=== PATIENT | male | born 1970 | race Caucasian/White ===

== ENCOUNTER → 2018-04-26 08:59 | Outpatient (POV) | payer BC, SELFPAY ==
[2018-04-26 09:27] VITALS: BMI 33.4
[2018-04-26 09:32] VITALS: BP 167/94; PULSE 61; RESP 18; TEMP 36.6; O2SAT 99
--- NOTE | 2018-04-26 12:16 | HMH.PMCON ---
Assessment and Plan (1) Degenerative disc disease Current visit: Yes Status: Chronic Qualifiers: Spinal region: lumbar Qualified Code(s): M51.36 - Other intervertebral disc degeneration, lumbar region Category: Medical (2) Radiculopathy Current visit: Yes Status: Chronic Qualifiers: Spinal region: lumbar Qualified Code(s): M54.16 - Radiculopathy, lumbar region Category: Medical Code(s): M54.10 - Radiculopathy, site unspecified - Assessment and plan all Dx Assessment and Plan for all problems:: We will schedule a series of 3 epidural steroid injections at the L4-L5 level for the patient. Patient has had this in the past and had 2-3 years relief with this. Patient is continuing a home stretching program. Patient is not on any anticoagulation therapy. I will follow-up with the patient after his 3 injections. Patient has tried and failed several months of anti-inflammatories. This note was dictated using voice recognition software and may contain errors or omissions HPI - Data of Consult Consult date: 04/26/18 Requesting Physician: Mylene Perez APRN Primary Care Provider: Noam Lackey MD Family Provider: Jose Quispe MD - Consult Narrative Reason for consult: Back pain History of present illness: Mr. Yanez is a 47 year old male who presents today for consultation in regards to his low back pain. Patient was having pain after he stepped out of his vehicle and twinge something in his back. Patient has had this pain in the past when he received 3 epidurals it was relieved. Patient states that it lasted for several years. Patient rates his pain an 8 out of 10 today. Patient states that he is having some muscle spasms as well. Patient is currently on Flexeril and this is helping. Patient is interested in epidural steroid injections. Patient is continuing a home stretching program at home. He states the pain is midline and radiating into his legs bilaterally. Patient states that it is aching and constant in nature CC: Mylene Perez APRN [facility] History I have reviewed the patient's past medical history: Yes Medical History: Reports:: Hypertension Denies:: Cancer, Diabetes Mellitus Type 1, Diabetes Mellitus Type 2, MRSA Other Surgeries: Yes: Other Amputation: No Fractures: No - *Social History Educational Level: Completed College Smoking Status: Never smoker Alcohol Intake: current Alcohol Intake Frequency:: a few times a week Occupational Status: employed Housing: house Household Members: spouse - Psychiatric History Expresses thoughts of harming self/others: None Suicide Plan Description: No Plan Review of Systems - Review of Systems ROS General: no recent weight change, no fever, no sleep disturbances Respiratory: no cough, no shortness of air, no recurring pulmonary infections Cardiovascular/Peripheral Vascular: No chest pain, No palpitations, no edema, no shortness of breath. Gastrointestinal: no incontinence, normal bowel movements reported Genitourinary: no incontinence Musculoskeletal: Back pain, leg pain Psychiatric: normal mood/ affect, Neurological: [denies weakness in extremities], [denies balance issues] Meds Home Medications Medication Instructions Recorded Confirmed Type Cyclobenzaprine HCl 10 mg PO TID 04/26/18 04/26/18 History [Cyclobenzaprine 10mg Tab] Indomethacin 25 mg PO TID 04/26/18 04/26/18 History Metoprolol Tartrate 100 mg PO DAILY 04/26/18 04/26/18 History Omeprazole [Omeprazole 20mg Tab] 20 mg PO DAILY 04/26/18 04/26/18 History Allergies Allergy/AdvReac Type Severity Reaction Status Date / Time NO KNOWN ALLERGIES - NKA Allergy Mild Uncoded 07/27/17 15:01 INGREDIENT: NO KNOWN - NO Allergy Unknown Uncoded 07/27/17 15:01 KNOWN DRUG ALLERGY Objective Vital signs: Temp Pulse Resp BP Pulse Ox 97.9 F 61 18 167/94 99 04/26/18 09:32 04/26/18 09:32 04/26/18 09:
--- NOTE | 2018-04-26 12:20 | P.CONS_ITS ---
Assessment and Plan (1) Degenerative disc disease Current visit: Yes Status: Chronic Qualifiers: Spinal region: lumbar Qualified Code(s): M51.36 - Other intervertebral disc degeneration, lumbar region Category: Medical (2) Radiculopathy Current visit: Yes Status: Chronic Qualifiers: Spinal region: lumbar Qualified Code(s): M54.16 - Radiculopathy, lumbar region Category: Medical Code(s): M54.10 - Radiculopathy, site unspecified - Assessment and plan all Dx Assessment and Plan for all problems:: We will schedule a series of 3 epidural steroid injections at the L4-L5 level for the patient. Patient has had this in the past and had 2-3 years relief with this. Patient is continuing a home stretching program. Patient is not on any anticoagulation therapy. I will follow-up with the patient after his 3 injections. Patient has tried and failed several months of anti-inflammatories. This note was dictated using voice recognition software and may contain errors or omissions HPI - Data of Consult Consult date: 04/26/18 Requesting Physician: Mylene Perez APRN Primary Care Provider: Noam Lackey MD Family Provider: Jose uQispe MD - Consult Narrative Reason for consult: Back pain History of present illness: Mr. Yanez is a 47 year old male who presents today for consultation in regards to his low back pain. Patient was having pain after he stepped out of his vehicle and twinge something in his back. Patient has had this pain in the past when he received 3 epidurals it was relieved. Patient states that it lasted for several years. Patient rates his pain an 8 out of 10 today. Patient states that he is having some muscle spasms as well. Patient is currently on Flexeril and this is helping. Patient is interested in epidural steroid injections. Patient is continuing a home stretching program at home. He states the pain is midline and radiating into his legs bilaterally. Patient states that it is aching and constant in nature CC: Mylene Perez APRN [facility] History I have reviewed the patient's past medical history: Yes Medical History: Reports:: Hypertension Denies:: Cancer, Diabetes Mellitus Type 1, Diabetes Mellitus Type 2, MRSA Other Surgeries: Yes: Other Amputation: No Fractures: No - *Social History Educational Level: Completed College Smoking Status: Never smoker Alcohol Intake: current Alcohol Intake Frequency:: a few times a week Occupational Status: employed Housing: house Household Members: spouse - Psychiatric History Expresses thoughts of harming self/others: None Suicide Plan Description: No Plan Review of Systems - Review of Systems ROS General: no recent weight change, no fever, no sleep disturbances Respiratory: no cough, no shortness of air, no recurring pulmonary infections Cardiovascular/Peripheral Vascular: No chest pain, No palpitations, no edema, no shortness of breath. Gastrointestinal: no incontinence, normal bowel movements reported Genitourinary: no incontinence Musculoskeletal: Back pain, leg pain Psychiatric: normal mood/ affect, Neurological: [denies weakness in extremities], [denies balance issues] Meds Home Medications Medication Instructions Recorded Confirmed Type Cyclobenzaprine HCl 10 mg PO TID 04/26/18 04/26/18 History [Cyclobenzaprine 10mg Tab] Indomethacin 25 mg PO TID 04/26/18 04/26/18 History Met
== END ==
PROVIDERS: Family Provider Family Medicine; PCP Family Medicine; Visit Provider Clinical Nurse Specialist Family Health
DX: M51.36 Other intervertebral disc degeneration, lumbar region (principal); M54.16 Radiculopathy, lumbar region
CPT/HCPCS: 99202

== ENCOUNTER → 2018-08-11 07:49 | Outpatient (CLI) | payer BC, SELFPAY ==
--- NOTE | 2018-08-11 07:52 | US_ITS ---
US abdomen limited History:Pain, nausea Ordering Physician:Trupti Beard MD Patient Age: 48 years Comparison:None Findings: Pancreas:Unremarkable. No obvious mass or abnormal fluid collection. No ductal dilatation Liver:No focal liver lesions demonstrated. Homogeneous echogenicity. No intrahepatic biliary ductal dilatation evident Right Kidney:Unremarkable. Normal size and echogenicity. No hydronephrosis Gallbladder:Stones are present in the neck of the gallbladder. No gallbladder wall thickening, pericholecystic fluid, or biliary dilatation. Common bile duct is 3 mm. Impression: Cholelithiasis with stones in the neck of the gallbladder
== END ==
PROVIDERS: PCP Emergency Medicine; Visit Provider Emergency Medicine
DX: R10.11 Right upper quadrant pain (principal)
CPT/HCPCS: 76705

== ENCOUNTER → 2018-08-23 15:44 | Outpatient (CLI) | payer BC, SELFPAY ==
[2018-08-23 16:35] LABS: Basophils # 0.1 K/mm3 (0-0.2); Basophils % 0.6 % (0.1-2.0); Eosinophils # 0.5 K/mm3 (0.0-0.4); Eosinophils % 5.2 % (0.1-12.0); Hematocrit 40.8 % (42.0-52.0); Hemoglobin 13.3 g/dL (14.1-18.0); Mean Corpuscular HGB Conc 32.7 g/dL (31.8-35.4); Mean Corpuscular Hemoglobin 28.7 pg (27.0-31.2); Mean Corpuscular Volume 87.7 fl (80-94); Mean Platelet Volume 8.2 fl (7.4-10.4); Monocytes # 0.5 K/mm3 (0.1-1.0); Monocytes % 5.3 % (1.7-9.3); Neutrophils # 5.1 K/mm3 (1.8-7.8); Neutrophils % 55.9 % (37.0-80.0); Platelet Count 240 K/mm3 (142-424); Red Blood Count 4.64 M/mm3 (4.60-6.20); Red Cell Distribution Width 14.1 % (11.5-17.5); White Blood Count 9.2 K/mm3 (4.8-10.8)
[2018-08-23 17:13] LABS: Alanine Aminotransferase 56 U/L (12-78); Albumin Level 3.8 gm/dL (3.4-5.0); Albumin/Globulin Ratio 1.1 (1.1-1.8); Alkaline Phosphatase 69 U/L (46-116); Anion Gap 13.3 mEq/L (5-15); Aspartate Amino Transferase 23 U/L (15-37); Bilirubin,Total 0.8 mg/dL (0.2-1.0); Blood Urea Nitrogen 13 mg/dL (7-18); Calcium 8.6 mg/dL (8.5-10.1); Carbon Dioxide 28 mmol/L (21.0-32.0); Chloride 102 mmol/L (98-107); Creatinine,Serum 1.09 mg/dL (0.70-1.30); Estimated Glomerular Filt Rate 73 ml/min (>60); GFR (African American) 88 ML/MIN (>60); Globulin 3.6 gm/dl (1.3-3.2); Glucose 88 mg/dL (74-106); Potassium 4.3 mmoL/L (3.5-5.1); Sodium 139 mmol/L (136-145); Total Protein,Serum 7.4 gm/dL (6.4-8.2)
== END ==
PROVIDERS: Visit Provider Surgery
DX: K80.10 Calculus of gallbladder with chronic cholecystitis without obstruction (principal)
CPT/HCPCS: 36415; 80053; 85025; 93005

== ENCOUNTER → 2020-01-24 10:08 | Outpatient (CLI) | payer BC, SELFPAY ==
--- NOTE | 2020-01-24 10:18 | XR_ITS ---
PROCEDURE: XR FINGER RT MIN 2V CLINICAL INDICATION: RT MIDDLE FINGER PAIN COMPARISON: No exams were available for comparison FINDINGS: The joint spaces are well preserved. There is some minimal cortical irregularity involving the distal and radial aspect of the proximal phalanx the 3rd finger. Nondisplaced fracture is a consideration. There are no previous exams for comparison. Small central lucency is noted at the distal aspect of the proximal phalanx suggesting a small cystic area. The joint spaces are well-preserved. No significant degenerative/arthritic changes. No erosive changes evident. Other findings:None. IMPRESSION: Possible nondisplaced fracture distal aspect of the proximal phalanx of the 3rd digit with nonspecific 2 mm cystic area distally Dictated by: Cristhian Agustin MD 01/24/2020 14:48 Electronically signed by Cristhian Agustin MD in [place] 01/24/2020 14:48
== END ==
PROVIDERS: PCP Family Medicine; Visit Provider Physician Assistant
DX: M79.644 Pain in right finger(s) (principal)
CPT/HCPCS: 73140

== ENCOUNTER → 2023-01-18 12:48 | Outpatient (CLI) | payer BC, SELFPAY ==
--- NOTE | 2023-01-18 12:55 | XR_ITS ---
FINAL REPORT CLINICAL HISTORY: URI,SOB, COUGH, FEVER X 4 DAYS FINDINGS: 2 views of the chest were obtained . The heart is normal in size. The mediastinum is within normal limits. There are mild bibasilar opacities which may represent atelectasis or pneumonia. There is no pneumothorax. Osseous structures are unremarkable. IMPRESSION: Mild bibasilar opacities which may represent atelectasis or pneumonia. Reviewed, Interpreted and Dictated by Timothy Pedraza III, MD Transcribed by Mae Cervantes Authenticated and . [facility] [place]
[2023-01-18 13:08] LABS: Bordetella Pertussis Not Detected (NotDetected); Chlamydophila Pneumoniae, PCR Not Detected (NotDetected); Coronavirus 19, PCR Not Detected (NotDetected); Coronavirus 229E Not Detected (NotDetected); Coronavirus NL63 Not Detected (NotDetected); Coronavirus OC43 Not Detected (NotDetected); Coronovirus HKU1,PCR Not Detected (NotDetected); Human Metapneumovirus Not Detected (NotDetected); Influenza A, PCR Not Detected (NotDetected); Influenza AH1, 2009 Not Detected (NotDetected); Influenza AH1, PCR Not Detected (NotDetected); Influenza AH3,PCR Not Detected (NotDetected); Influenza B, PCR Not Detected (NotDetected); Mycoplasma Pneumoniae, PCR Not Detected (NotDetected); Parainfluenza 1, PCR Not Detected (NotDetected); Parainfluenza 2, PCR Not Detected (NotDetected); Parainfluenza 3, PCR Not Detected (NotDetected); Parainfluenza 4, PCR Not Detected (NotDetected); Respiratory Syncytial Virus Not Detected (NotDetected); Rhinovirus/Enterovirus Not Detected (NotDetected)
[2023-01-18 15:51] LABS: Adenovirus,PCR Detected (NotDetected)
== END ==
LOC: LAB 12:49
PROVIDERS: PCP Nurse Practitioner Family; Visit Provider Nurse Practitioner Family
DX: J40 Bronchitis, not specified as acute or chronic (principal); J06.9 Acute upper respiratory infection, unspecified; B34.0 Adenovirus infection, unspecified
CPT/HCPCS: 71046; 87581; 87632; 87635; 87798; C9803; U0003; U0005

== ENCOUNTER 2024-05-05 08:33 | Outpatient (CLI) | payer SELFPAY ==
--- NOTE | 2024-05-05 08:48 | CT_ITS ---
APPROVED REPORT Multifocal Button Grinder: CLINICAL INDICATION Risk stratification TECHNIQUE Image Acquisition: A 128 slice MDCT scanner (WorkMe[employer] View) was used for data acquisition. A noncontrast coronary calcium scan was performed. A CT attenuation threshold of 130 Hounsfield units (HU) was used for the detection of calcium in contiguous voxels of 1 sq mm in area to be counted as individual lesions. A tube voltage of 120 KVp was used. The patient received no medications prior to the coronary calcium CT. Image Reconstruction Transaxial images were reconstructed at 0.67 mm slide thickness. Data was reviewed interactively on an advanced workstation capable of 2 and 3-dimensional displays in all conventional reconstruction formats, including multiplanar reformations, maximum intensity projections, curved multiplanar reformations, and volume rendered reconstructions. When applicable, selected routine images describing the relevant coronary anatomy and pathology were saved and sent to PACS. Complications None Technical Quality Overall image quality was good. Total DLP (Dose-Length Product) is 143.9 mGy-cm. The reported value represents the total of one or more individual components during the CT acquisition of this date and at this time, and as such, the same value may appear in more than one CT report depending on the interpreting/reporting physicians. COMPARISON None FINDINGS CT Coronary Calcium Scoring LMA (Left Main Artery) = 0 LAD (Left Anterior Descending) = 7 LCX (Left Coronary Circumflex) = 8 RCA (Right Coronary Artery) = 0 Total Calcium Score = 15 using the AJ-130 method. There is no identifiable calcification in the aortic valve, mitral annulus or mitral valve, pericardium, or myocardium. IMPRESSION -Coronary artery calcification is pesent. -Total Calcium Score (Agatston Score) = 15 using the AJ-130 method. -The observed calcium score of 15 is at 65th percentile for subjects of the same age, sex, and race/ethnicity. The interpretation of the calcium heart score is based on the following continuum*: 0 = no calcified plaque detected (risk of coronary artery disease is very low ??? less than 5%) 1-10 = calcium detected in extremely minimal levels (risk of coronary diseases is still low ??? less than 10%) 11-100 = mild levels of plaque detected with certainty (mild or minimal narrowing of heart arteries is likely) 101-400 = definite,at least moderate levels of plaque detected (relatively high risk of a heart attack within 3-5 years) >401-999 = extensive levels of plaque detected (high risk of heart attack, high levels of vascular disease are present, high likelihood of at least one significant coronary narrowing) *The calcium heart score quantifies the burden of coronary calcification/plaque in the coronary arteries. The calcium heart score does not evaluate the presence or the burden of non-calcified (i.e. soft) plaque. The coronary and cardiac findings of this Coronary Calcium CT were reviewed, reported, and signed by Juan Villa MD (Lisw). Conclusion Electronically signed by : Nayeli Villa MD 05/07/2024 21:23:30
== END 2024-05-05 23:59 | disposition home or self-care (01) ==
LOC: RAD 08:33
PROVIDERS: PCP Family Medicine; Visit Provider Family Medicine
DX: Z13.6 Encounter for screening for cardiovascular disorders (principal)
CPT/HCPCS: 75571

== ENCOUNTER 2025-02-11 12:13 | Emergency (ER) | payer BC, SELFPAY ==
--- OUTSIDE RECORDS SUMMARY | 2024-04-24 05:15 | XMS_ITS ---
[facility] Address [address] [place] [id number] Care Team Providers Care Carousel Attendant Name Role Phone Carmen Lackey Primary Care Provider [phone] Jose Quispe Unavailable [phone] Allergies No Known Allergies Results Component Value Reference Range Notes colonoscopy Reviewed date:06/08/2024 11:30:46 AM Interpretation: Performing Lab: Notes/Report: CT Scan : Coronary w/o contr ast (calcium scoring) Reviewed date:05/08/2024 10:34:09 AM Interpretation:Calcium score 15 Performing Lab: Notes/Report: Calcium score 15 REASON FOR VISIT PREVENTIVE EXAM, 3 WEEK FU Medications Medication SIG (Take, Route, Frequency, Duration) Notes Start Date End Date Status amLODIPine Besylate 10 MG 1 tablet Orall y Once a day 03/31/2024 Active hydroCHLOROthiazide 25 MG 1 tablet in th e morning Orally Once a day; Duration: 30 day(s) 04/03/2024 Active Metoprolol Succinate ER 100 mg TAKE ONE TABLET BY MOUTH EVERY DAY Active Omeprazole 20 mg take one capsule by mouth every day; Duration: 90 days Active Irbesartan 300 MG 1 tablet Orally Once a day 03/22/2024 Active Diclofenac Sodium 75 MG 1 tablet as need ed Orally Twice a day Active valACYclovir HCl 1 GM 2 tablet Orally Tw o times a day 01/26/2023 Active Albuterol Sulfate HFA 108 (9 0 Base) MCG/ACT 2 puff(s) inhaled qid and q2h prn 12/21/2022 Active ZyrTEC Allergy 10 MG 1 tab(s) orally onc e daily Active Fluticasone Propionate 50 MCG/ACT 1 spray(s) in each nostril once a day; Duration: 30 day(s) 07/07/2022 Active Vital Signs Blood pressure systolic 140 mm Hg 04/24/20 24 Blood pressure diastolic 90 mm Hg 024 Heart Rate 63 /min 04/24/2024 Height 68 in 04/24/2024 Weight 232.6 lbs 04/24/2024 BMI 35.36 kg/m2 04/24/2024 Encounters Encounter Location Date Provider Diagnosis [facility] [address] [facility] [address] [facility] [address] [place] [id number] 04/24/2024 Jose Quispe Well adult exam Z00. 00 ; Colon cancer screening Z12.11 and Encounter for screening for coronary artery disease Z13.6 Assessments Encounter Date Diagnosis (ICD Code) Assessment Notes Treatment Notes Treatment Clinical Notes Section Notes 04/24/2024 Well adult exam (ICD-10 - Z00.00) 04/24/2024 Colon cancer screening (ICD-10 - Z12.11) 04/24/2024 Encounter for screening for coronary artery disease (ICD-10 - Z13.6) Plan Of Treatment Next Appt Details Follow Up: via phone to repo rt test results, Reason: Provider Name:Carmen Mcbride, 02/20/2025 10:15:00 AM, [address] [facility] [address] [facility], [address], [place], [id number], Progress Notes * TERESA MCKEONDOB:1970 ( 54 yo M)Acc No.[id number]:04/24/2024 Physical Patient: TERESA MALLOY Provider: Corwin Quispe M.D. :1970 A ge:53 Y S ex:Male Date:04/24/2024 Address:[id number] Pcp:Carmen Lackey Subjective: * Chief Complaints: * 1 . PREVENTIVE EXAM, 3 WEEK FU. * HPI: C ardiology: 53 year old male presents with c/o Blood Pressure Elevated P t here to f/u on hypertension, states he is doing well and does not have any cocnerns today. c/o Hyperlipidemia P t is fasting today. H PI: c/o Patient is here today for P reventative exam for insurance. * ROS: D ERMATOLOGY: no R samanta. n o H jeannine. G ASTROENTEROLOGY: no N ausea. n o V omiting. U ROLOGY: no D ifficulty urinating. n o B lood in urine. * Medical History: H ypertension, SVT, Allergies, Asthma, Low Back Pain, Lumbar Disc Disease, Lumbar Disc Herniation (2015?), s/p pain management treatment with epidural injections (2014&2017). * Surgical History: S inus Surgery 2007, Cholecystectomy 09/09/2018. * Hospitalization/Major Diagno stic Procedure: [facility]- [facility] ER . * Family History: F ather: alive. M other: alive. 2 son(s) . . * Social History: C affeine: yes, frequency:. Exercise: yes. Home smoke detector use: yes. Marital Status: . New since last visit: none. Occupation: yes. Past smoking status: no. Occup. exposure: none. Recreational drug use: no. Alcohol: Type: , Frequency: ,Years: , Determination:. Sexually active: yes. Travel ouside [place]: no. * Medications: T aking Diclofenac Sodium 75 MG Tablet Delayed Release 1 tablet as needed Orally Twice a day , Taking ZyrTEC Allergy 10 MG Tablet 1 tab(s) orally once daily , Taking Fluticasone Propionate 50 MCG/ACT Suspension 1 spray(s) in each nostril once a day , Taking valACYclovir HCl 1 GM Tablet 2 tablet Orally Two times a day , Taking Albuterol Sulfate HFA 108 (90 Base) MCG/ACT Aerosol Solution 2 puff(s) inhaled qid and q2h prn , Taking Omeprazole 20 mg Capsule Delayed Release take one capsule by mouth every day , Taking Irbesartan 300 MG Tablet 1 tablet Orally Once a day , Taking Metoprolol Succinate ER 100 mg Tablet Extended Release 24 Hour TAKE ONE TABLET BY MOUTH EVERY DAY , Taking amLODIPine Besylate 10 MG Tablet 1 tablet Orally Once a day , Taking hydroCHLOROthiazide 25 MG Tablet 1 tablet in the morning Orally Once a day , Medication List reviewed and reconciled with the patient * Allergies: N .K.D.A. Objective: * Vitals: W t:232.6, Temp:98.0, BP:140/90, HR:63, Nurse:kk, Ht: 68, BMI:35.36. * Examination: G eneral Examination: General Appearance: N AD. H EENT: u nremarkable.?Neck: s upple, no lymphadenopathy. H eart: R SR. L ungs: c lear to auscultation. S kin: n ormal, no rash. P eripheral pulses: n ormal (2+) bilaterally. E xtremities: b ilateral trace pitting leg edema. Assessment: * Assessment: 1. W ell adult exam - Z00.00 (Primary) 2 . C olon cancer screening - Z12.11? 3. E ncounter for screening for coronary artery disease - Z13.6 ? Plan: * Treatment: 2.?Encounter for screening for coronary artery disease?Imaging: CT Scan : Coronary w/o contrast (calcium scoring) (Performed Date - 05/05/2024)?Calcium score 15* Francy Melendrez 04/24/2024 10:3 6:35 AM > no PA required--patient pays-order faxed to [facility] Tierney Gregory 05/08/2024 10:34:05 AM > , See phone encounter * Follow Up: v ia phone to report test results * Images: Billing Information: * Visit Code: 11171 Preventive Care Est Pt Age 40-64. * Procedure Codes: * Electronic signature of Grisel Quispe MD on 02/11/2025 at 12:21 PM EDT Sign off status: Pending * Provider: Corwin Quispe M.D. Date: 0 04/24/2024 Generated for Bro magaña/Leslie/eTransmitting on: 0 02/11/2025 12:21 PM EDT History and Physical Notes * HPI (History of Present Illness) Category Sub-Category Detail Notes Category Not es Cardiology Blood Pressure Elevated Pt here to f/u on hypertension, states he is doing well and does not have any cocnerns today Hyperlipidemia Pt is fasting today HPI Patient is here today for Preventative ex am for insurance Examination Category Sub-Category Detail Notes Category Not es General Examination HEENT: unremarkable Heart: RSR Lungs: clear to auscultatio n Extremities: bilateral trace helen ing leg edema General Appearance: NAD Skin: normal, no rash Neck: supple, no lymphaden opathy Peripheral pulses: normal (2+) bilatera lly
--- OUTSIDE RECORDS SUMMARY | 2024-09-20 07:30 | XMS_ITS ---
[facility] Address [address] [place] [id number] Care Team Providers Care Frame Opener Name Role Phone Carmen Lackey Primary Care Provider Jose Enrique Jose Unavailable [phone] Allergies No Known Allergies REASON FOR VISIT ckup, rash Medications Medication SIG (Take, Route, Frequency, Duration) Notes Start Date End Date Status ZyrTEC Allergy 10 MG 1 tab(s) orally onc e daily Active Diclofenac Sodium 75 MG 1 tablet as need ed Orally Twice a day Active Fluticasone Propionate 50 MCG/ACT 1 spray(s) in each nostril once a day; Duration: 30 day(s) 07/07/2022 Active Metoprolol Succinate ER 100 mg TAKE ONE TABLET BY MOUTH EVERY DAY Active valACYclovir HCl 1 GM 2 tablet Orally Tw o times a day 01/26/2023 Active Irbesartan 300 MG 1 tablet Orally Once a day Active Triamcinolone Acetonide 0.1 % 1 applicat ion Externally Twice a day 09/20/2024 Active dexAMETHasone 2 MG 1 tablet Orally ever y 12 hrs; Duration: 5 day(s) 09/20/2024 Active hydroCHLOROthiazide 25 mg TAKE ONE TABLE T BY MOUTH EVERY DAY IN THE MORNING Active amLODIPine Besylate 10 mg 1/2 tablet Ora lly once daily Active Albuterol Sulfate HFA 108 (9 0 Base) MCG/ACT 2 puff(s) inhaled qid and q2h prn Active Omeprazole 20 mg TAKE ONE CAPSULE BY MOUTH EVERY DAY; Duration: 90 Active Vital Signs Blood pressure systolic 150 mm Hg 09/20/19 25 Blood pressure diastolic 90 mm Hg 025 Heart Rate 66 /min 09/20/2024 Height 68 in 09/20/2024 Weight 234.5 lbs 09/20/2024 BMI 35.65 kg/m2 09/20/2024 Encounters Encounter Location Date Provider Diagnosis [facility] [address] [facility] [address] [facility] [address] [place] [id number] 09/20/2024 Jose Quispe Rash R21 ; Itch of s kin L29.9 ; Essential hypertension I10 and Peripheral edema R60.0 Assessments Encounter Date Diagnosis (ICD Code) Assessment Notes Treatment Notes Treatment Clinical Notes Section Notes 09/20/2024 Rash (ICD-10 - R21) 09/20/2024 Itch of skin (ICD-10 - L29.9) moisturizer bid to affected areas 09/20/2024 Essential hypertension (ICD-10 - I10) Not at goal today, Blood pressure journal 09/20/2024 Peripheral edema (ICD-10 - R60.0) Resolved Plan Of Treatment Medication Medication Name Sig Start Date Stop Date Notes Irbesartan 300 MG 1 tablet Orally Once a day Triamcinolone Acetonide 0.1 % 1 applicat ion Externally Twice a day 09/20/2024 dexAMETHasone 2 MG 1 tablet Orally ever y 12 hrs; Duration: 5 day(s) 09/20/2024 hydroCHLOROthiazide 25 mg TAKE ONE TABLE T BY MOUTH EVERY DAY IN THE MORNING amLODIPine Besylate 10 mg 1/2 tablet Orally once daily Treatment Notes Assessment Notes Itch of skin moisturizer bid to a ffected areas Essential hypertension Not at goal today , Blood pressure journal Peripheral edema Resolved Next Appt Details Follow Up: 4 Months fasting, Reason: Provider Name:Carmen Mcbride, 02/20/2025 10:15:00 AM, [facility] [facility], [address], [place], [id number], Progress Notes * TERESA MCKEONDOB:1970 ( 54 yo M)Acc No.[id number]:09/20/2024 Progress Notes Patient: TERESA MALLOY Provider: Corwin Quispe M.D. :1970 A ge:54 Y S ex:Male Date:09/20/2024 Address:[place], [id number] Pcp:Carmen Lackey Subjective: * Chief Complaints: * 1 . Ckup, rash. * HPI: D ermatology: 54 year old male presents with c/o rash P t complains of rash on arms and leg for a couple months. Pt states that rash does worsen at times but then it gets better on its own. C ardiology: c/o Blood Pressure Elevated P t here to f/u on hypertension. Pt complains of bilateral feet swelling. Pt states he has not taken Amlodipine in 2 days and swelling has improved. Pt states that swelling gets so bad at times that he cannot tie his shoes. * ROS: G ASTROENTEROLOGY: no N ausea. n o V omiting. U ROLOGY: no D ifficulty urinating. n o B lood in urine. * Medical History: H ypertension, SVT, Allergies, Asthma, Low Back Pain, Lumbar Disc Disease, Lumbar Disc Herniation (2014?), s/p pain management treatment with epidural injections (2014&2017). * Surgical History: S inus Surgery 2007, Cholecystectomy 09/09/2018. * Hospitalization/Major Diagno stic Procedure: B ack Pain- [facility] ER . * Family History: F ather: [...] Orally Two times a day , Taking Metoprolol Succinate ER 100 mg Tablet Extended Release 24 Hour TAKE ONE TABLET BY MOUTH EVERY DAY , Taking Omeprazole 20 mg Capsule Delayed Release TAKE ONE CAPSULE BY MOUTH EVERY DAY , Taking Irbesartan 300 MG Tablet 1 tablet Orally Once a day , Taking hydroCHLOROthiazide 25 mg Tablet TAKE ONE TABLET BY MOUTH EVERY DAY IN THE MORNING , Taking Albuterol Sulfate HFA 108 (90 Base) MCG/ACT Aerosol Solution 2 puff(s) inhaled qid and q2h prn , Not-Taking amLODIPine Besylate 10 mg Tablet TAKE ONE TABLET BY MOUTH EVERY DAY , Medication List reviewed and reconciled with the patient * Allergies: N .K.D.A. Objective: * Vitals: W t:234.5, Temp:98.0, BP:150/90, HR:66, Nurse:kk, Ht: 68, BMI:35.65. * Examination: G eneral Examination: General Appearance: N AD. H eart: R SR. L ungs:?clear to auscultation. S kin: s cattered patches of pink, rough and dry skin on the extremities. P eripheral pulses: n ormal (2+) bilaterally. E xtremities: no leg edema. Assessment: * Assessment: 1. R samanta - R21 (Primary) 2 . I tch of skin - L29.9 3 . E ssential hypertension - I10 4 . P eripheral edema - R60.0 Plan: * Treatment: 2. I tch of skin Notes: moisturizer bid to affected areas 3. E ssential hypertension Resume amLODIPine Besylate Tablet, 10 mg, 1/2 tablet, Orally, once daily; C ontinue Irbesartan Tablet, 300 MG, 1 tablet, Orally, Once a day; C ontinue hydroCHLOROthiazide Tablet, 25 mg, TAKE ONE TABLET BY MOUTH EVERY DAY IN THE MORNING. Notes: Not at goal today, Blood pressure journal 4. P eripheral edema Notes: Resolved * Procedure Codes: 3 077F SYST BP = 140 MM HG6 IT, 3080F DIAST BP = 90 MM HG * Follow Up: 4 Months fasting * Images: Billing Information: * Visit Code: 95566 Office Visit, Est Pt., Level 4. * Procedure Codes: 3077F SYST BP = 140 MM HG6 IT. 3080F DIAST BP = 90 MM HG. * Electronic signature of Griesl Quispe MD on 02/11/2025 at 12:21 PM EDT Sign off status: Pending * Provider: Corwin Quispe M.D. Date: 0 09/20/2024 Generated for Bro magaña/Leslie/Anette on: 0 02/11/2025 12:21 PM EDT History and Physical Notes * HPI (History of Present Illness) Category Sub-Category Detail Notes Category Not es Dermatology rash Pt complains of rash on arms and leg for a couple months. Pt states that rash does worsen at times but then it gets better on its own Cardiology Blood Pressure Elevated Pt here to f/u on hypertension. Pt complains of bilateral feet swelling. Pt states he has not taken Amlodipine in 2 days and swelling has improved. Pt states that swelling gets so bad at times that he cannot tie his shoes Examination Category Sub-Category Detail Notes Category Not es General Examination Heart: RSR Lungs: clear to auscultatio n Extremities: no leg edema General Appearance: NAD Skin: scattered patches of pink, rough and dry skin on the extremities Peripheral pulses: normal (2+) bilatera lly
--- OUTSIDE RECORDS SUMMARY | 2024-12-18 14:30 | XMS_ITS | Encounter Summary ---
Author Organization [facility] Address [address] [place] [address] Care Team Providers Care Booth Usher Name Role Phone Jose Quispe MD Primary Care Provider [phone] Reason for Visit * Reason Comments Injections * Other Medical (Routine) - Closed Specialty Diagnoses / Procedures Referred By Rosaline middleton Referred To Contact Pain Medicine Diagnoses Myalgia, other site Procedures Injection - Trigger Point, 3+ Breonna Marsh APRN [address] [facility] [address] [place] [address] Phone: tel: fax: Referral ID Status Reason Start Date Expiration Date Visits Re quested Visits Authorized [id number] Closed 12/04/2024 06/05/2026 1 1 Encounter Details Date Type Department Care Team (Late st Contact Info) Description 12/18/2024 2:30 PM EDT Office Visit [facility] Interventional Pain Medicine [address] [place] [address] Jameson Ramos MD [address] [facility] [address] [place] [address] Myalgia, other site Social History Tobacco Use Types Packs/Day Years Used Date Smoking Tobacco: Never Smokeless Tobacco: Never Alcohol Use Standard Drinks/Week Comments Not Currently 0 (1 standard drink = 0.6 oz pur e alcohol) PHQ-2 Answer Date Recorded Patient Health Questionnaire-2 Score 0 11/30/2024 PHQ-9 Answer Date Recorded Patient Health Questionnaire-9 Score 0 08/29/2024 Sex and Gender Information Value Date Recorded Sex Assigned at Male 03/16/2024 10:09 AM EDT Legal Sex Male 7:52 PM EDT Gender Identity Male 03/16/2024 10:09 AM EDT Sexual Orientation Straight 03/16/2024 10 :09 AM EDT documented as of this encounter Last Filed Vital Signs Vital Sign Reading Time Taken Comments Blood Pressure 122/82 12/18/2024 2:34 PM EDT Pulse 59 12/18/2024 2:34 PM EDT Temperature - - Respiratory Rate 18 12/18/2024 2:34 PM EDT Oxygen Saturation 98% 12/18/2024 2:34 PM EDT Inhaled Oxygen Concentration - - Weight 104 kg (230 lb) 12/18/2024 2:34 PM EDT Height 172.7 cm (5' 8 ) 12/18/2024 2:34 PM EDT Body Mass Index 34.97 12/18/2024 2:34 PM EDT documented in this encounter Miscellaneous Notes * Progress Notes - Jameson Ramos MD - 12/18/2024 2:30 PM EDTAssociated Order(s): Injection - Trigger Point, 3+ Pre-Procedure Diagnose(s): Myalgia, other site Post-Procedure Diagnose(s): Myalgia, other site Patient ID: Humza Yanez is a 54 y.o. male. Encounter Diagnosis Name Primary? Myalgia, other site Injection - Trigger Point, 3+ Performed by: Jameson Ramos MD Authorized by: Breonna Marsh APRN Patient seen and evaluated prior to their procedure.There is nothing in the patient's overall condition that would affect the planned course of the patient's treatment today that requires additional interventions to reduce risk to the patient. Procedure(s): Bilateral Paraspinous, Quadratus lumborum and Multifidus Trigger Point Injections Anesthesia Type: Local only Complications: none Follow-up Plan: Clinic follow up as scheduled Procedure: This patient was seen earlier for a comprehensive evaluation of their painful condition.After discussing treatment options, the patient elected to proceed with trigger point injections. Written, informed consent was obtained before the start of the procedure. The patient's history of present illness, past medical history (including current medications and allergies), and physical examination were reviewed with the patient immediately before the procedure, and it was confirmed directly with the patient that they desired to proceed. The patient ambulated to the procedure room and was placed in the most comfortable position with pressure points padded. A time out was performed, confirming the patient's identification, allergy status, the side(s) of the procedure, and the procedure(s) to be performed. All operators were wearing h ats, masks and sterile gloves. The patient underwent ChloraPrep skin prep. 8 trigger points were identified at the above mentioned area(s). The noted areas were cleaned with chloraprep and a 27 gauge needle was inserted into the painful area with a dry needling technique. Asolution containing 10mL of Lidocaine 1% . 2 mL of this solution was injected after negative aspiration at each of the aforementioned sites mixed. Sterile bandage was applied over the puncture site if required. Following completion of the procedure, the patient was monitored, then was later discharged in stable condition. documented in this encounter Plan of Treatment Upcoming Encounters Date Type Department Care Team (Late st Contact Info) Description 02/12/2025 11:00 AM EDT Appointment [facility] Vascular Lab [address] [address] 03/05/2025 2:10 PM EDT Office Visit [facility] [address] [place] [address] Humza Tenorio MD [address] [address] 03/15/2025 8:20 AM EDT Office Visit [facility] at [facility] [address] [place] [id number] Adilia Dickson, [address] [place] [address] 04/11/2025 9:50 AM EDT Office Visit [facility] at [facility] [address] [place] [address] Adilia Dickson, [address] [place] [address] documented as of this encounter Procedures Procedure Name Priority Date/Time Associated Diagnosis Comments INJECT TRIGGER POINTS, > 3 Routine 12/18/2024 2:30 PM EDT Myalgia, other site documented in this encounter Results * INJECT TRIGGER POINTS, > 3 (12/18/2024 2:30 PM EDT) Narrative Jameson Ramos MD - 12/18/2024 2:30 PM EDT Jameson Ramos MD 12/18/2024 2:49 PM Injection - Trigger Point, 3+ Performed by: Jameson Ramos MD Authorized by: Breonna Marsh APRN Breonna Marsh APRN IN CLINIC/BEDSIDE ORDERAB LES Final Result documented in this encounter Visit Diagnoses Diagnosis Myalgia, other site documented in this encounter Additional Health Concerns Assessment Noted Time PHQ-9 Depression Total Score: 0 08/29/19 25 2:46 PM EST A fall risk assessment has been complete d for the patient 12/18/2024 2:34 PM EDT A Body Mass Index follow-up plan has been documented for the patient 12/18/2024 2:49 PM EDT documented as of this encounter Care Teams Booth Usher Relationship Specialty Start Date End Date Jose Quispe MD [facility] [address] PCP - General 12/20/20 documented as of this encounter
--- OUTSIDE RECORDS SUMMARY | 2024-12-26 09:00 | XMS_ITS | Encounter Summary ---
Author Organization Healthcare Address [address] [id number] Care Team Providers Care Nurse Practitioner Home Assessments Name Role Phone Jose Quispe MD Primary Care Provider [phone] Reason for Visit * Other Medical (Routine) - Closed Specialty Diagnoses / Procedures Referred By Rosaline middleton Referred To Contact Neurology Diagnoses Hand paresthesia Procedures EMG / Nerve Conduction Study Adilia Dickson, DO [address] [place] [address] Phone: tel: fax: Referral ID Status Reason Start Date Expiration Date V isits Requested Visits Authorized [id number] Closed Specialty Services Required 11/30/2024 2026 1 1 Encounter Details Date Type Department Care Team (Late st Contact Info) Description 12/26/2024 9:00 AM EDT Procedure Visit [facility] at [facility] [address] [facility] [place] [address] Felipe Bruce, DO [address] [place] [address] Left median nerve neuropathy (Primary Dx); Carpal tunnel syndrome, unspecified laterality; Hand paresthesia Social History Tobacco Use Types Packs/Day Years Used Date Smoking Tobacco: Never Smokeless Tobacco: Never Tobacco Cessation:Counseling Given: Not Answered Alcohol Use Standard Drinks/Week Comments Not Currently 0 (1 standard drink = 0.6 oz pur e alcohol) PHQ-2 Answer Date Recorded Patient Health Questionnaire-2 Score 0 12/26/2024 PHQ-9 Answer Date Recorded Patient Health Questionnaire-9 Score 0 12/26/2024 Sex and Gender Information Value Date Recorded Sex Assigned at Male 03/16/2024 10:09 AM EDT Legal Sex Male 7:52 PM EDT Gender Identity Male 03/16/2024 10:09 AM EDT Sexual Orientation Straight 03/16/2024 10 :09 AM EDT documented as of this encounter Last Filed Vital Signs Vital Sign Reading Time Taken Comments Blood Pressure 147/90 12/26/2024 9:05 AM EDT Pulse 52 12/26/2024 9:05 AM EDT Temperature - - Respiratory Rate - - Oxygen Saturation 99% 12/26/2024 9:05 AM EDT Inhaled Oxygen Concentration - - Weight 104 kg (230 lb) 12/26/2024 9:05 AM EDT Height 172.7 cm (5' 8 ) 12/26/2024 9:05 AM EDT Body Mass Index 34.97 12/26/2024 9:05 AM EDT documented in this encounter Functional Status * Over the past 2 weeks, how often have you been bothered by any of the following problems? Question Answer Date of Assessment Author Little interest or pleasure in doing things Not at all 12/26/2024 9:07 AM EDT Mariah Reyes Feeling down, depressed, or hopeless Not at all 12/26/2024 9:07 AM EDT Mariah Pérez Patient Health Questionnaire-2 Score 0 12/26/2024 9:07 AM EDT Mariah Silverman * Question Answer Date of Assessment Author Trouble falling or staying asleep, or sleeping too much Not at all 12/26/2024 9:07 AM EDT Mariah Pérez Feeling tired or having little energy Not at all 12/26/2024 9:07 AM EDT Mariah Pérez Poor appetite or overeating Not at all 12/26/2024 9: 07 AM EDT Mariah Pérez Feeling bad about yourself - or that you are a failure or have let yourself or your family down Not at all 12/26/2024 9:07 AM EDT Mariah Pérez Trouble concentrating on things, such as reading the newspaper or watching television Not at all 12/26/2024 9:07 AM EDT Mariah Pérez Moving or speaking so slowly that other people could have noticed? Or the opposite - being so fidgety or restless that you have been moving around a lot more than usual. Not at all 12/26/2024 9:07 AM EDT Mariah Pérez Thoughts that you would be better off or hurting yourself in some way Not at all 12/26/2024 9:07 AM EDT Mariah Min Patient Health Questionnaire-9 Score 0 12/26/2024 9:07 AM EDT Mariah Silverman * Calculated C-SSRS Risk Score (Lifetime/Recent) Answer Date of Assessment Author No Risk Indicated 12/26/2024 9:07 AM EDT Mariah Jean * If you checked off any problems on this questionnaire so far, Question Answer Date of Assessment Author How difficult have these problems made it for you to do your work, take care of things at home, or get along with other people? Not difficult at all 12/26/2024 9:07 AM EDT Mariah Min * Question Answer Date of Assessment Author 1. Wish to be (Past 1 Month) No 12/26/2024 9:07 AM MARIANAT Mariah Pérez 2. Non-Specific Active Suicidal Thoughts (Past 1 Month) No 12/26/2024 9:07 AM MARIANAT Mariah Pérez 6. Suicidal Behavior (Lifetime) No 12/26/2024 9:07 AM EDT Mariah Pérez documented as of this encounter Miscellaneous Notes * Progress Notes - Felipe Bruce, - 12/26/2024 9:00 AM EDTAssociated Order(s): EMG / Nerve Conduction Study Pre-Procedure Diagnose(s): Hand paresthesia Post-Procedure Diagnose(s): Hand paresthesia Images from the original note were not included. Patient ID: Humza Yanez is a 54 y.o. male. Encounter Diagnoses Name Primary? Left median nerve neuropathy Yes Carpal tunnel syndrome, unspecified laterality Hand paresthesia EMG / Nerve Conduction Study Date/Time: 12/26/2024 9:00 AM Performed by: Felipe Bruce DO Authorized by: Adilia Dickson DO Consent: Consent obtained: Written and verbal Consent given by: Patient Risks, benefits, and alternatives were discussed: yes Risks discussed: Bleeding, infection and pain Weston protocol: Procedure explained and questions answered to patient or proxy's satisfaction: yes Immediately prior to procedure, a time out was called: yes Patient identity confirmed: Verbally with patient Indications: Indications: Paresthesias Pre-procedure details: Procedure prep: alcohol swap prior to insertion of EMG electrode. Sedation: Sedation type: None Anesthesia: Anesthesia method: None Post-procedure details: Procedure completion: Tolerated well, no immediate complications [facility] Department of Physical [place] [address] Test Date: 12/26/2024 Patient: Humza Yanez : 1970 Physician: Felipe Bruce DO Sex: Male Height: 5' 8 Ref Phys: Adilia Dickson DO ID#: [id number] Weight: 230 lbs. Resident: Pawan Woodall DO Patient Complaints: b/l hand numbness Medications: Please refer to EMR for full medication list Patient History / Exam: Patient is a 54 yo male with a significant PMH of GERD, HTN, Asthma who recently presented to PM&R office for b/l hand numbness. Patient presents today with b/l hand numbness. He notes that his symptoms are worse at night, needing to shake his hands out. Also notes symptoms in the palmar aspect in all digits. Symptoms are worse with repetitive movements. No bracing or OT at this time. Alsoendorses some tenderness with palpation to the periscap muscles bilaterally. Patient denies history of DM, thyroid dysfunction, vitamin deficiencies, cancer, chemotherapy/radiation therapy, EtOH or tobacco use. Patient understanding of procedure, understanding of risks and benefits, and all questions answered appropriately. Patient was consented. No other acute medical concerns at this time. Upper extremity exam: Inspection: no gross atrophy throughout Sensation: SILT bilateral median/radial/ulnar distributions Strength: 5/5 bilateral shoulder abduction, elbow flexion/extension, wrist extension, finger flexion/extension, finger abduction Reflexes: 2+ bilateral biceps/triceps/brachioradialis Negative Chu's bilaterally Positive Tinel's at the wrist on the left Negative Tinel's at the elbow bilaterally NCS & EMG Findings: Left median motor study revealed prolonged onset latency, normal amplitudes, and normal conduction velocity (Elbow-Wrist). Right median motor study revealed normal onset latency, normal amplitudes, and normal conduction velocity (Elbow-Wrist). Left ulnar motor study revealed normal onset latency, normal amplitudes, normal conduction velocity(B Elbow-Wrist), and normal conduction velocity (A Elbow-B Elbow). Right ulnar motor study revealed normal onset latency, normal amplitudes, normal conduction velocity (B Elbow-Wrist), and normal conduction velocity (A Elbow-B Elbow). Left medial antebrachial cutaneous sensory study revealed normal peak latency and normal amplitude. Right medial antebrachial cutaneous sensory study revealed normal peak latency and normal amplitude. Right ulnar sensory study revealed normal peak latency and normal amplitude. Left ulnar sensory study revealed normal peak latency and normal amplitude. Left median (across palm) sensory study revealed prolonged peak latency (Wrist), normal amplitude, and prolonged peak latency (Palm). Right median (across palm) sensory study revealed normal peak latency (Wrist), normal amplitude, and normal peak latency (Palm). Left median/radial (dig I) comparison study revealed prolonged peak latency (Median), reduced amplitude (Median), normal peak latency (Radial), normal amplitude (Radial), and abnormal peak latency difference (Median-Radial). Right median/radial (dig I) comparison study revealed normal peak latency (Median), normal amplitude (Median), normal peak latency (Radial), normal amplitude (Radial), and normal peak latency difference (Median-Radial). Concentric EMG evaluation of the b/l APB, FDI muscles revealed normal insertional activity, no abnormal spontaneous activity and the voluntary motor unit action potentials were within normal parameters. I was present for the entire procedure, interpretation of the results and completion of the report.Physicians performed all the NCS. Dr. Woodall performed the procedure. Impression: Electrodiagnostic evidence of a moderate, left median nerve entrapment neuropathy at the wrist. No electrodiagnostic evidence of a bilateral ulnar entrapment neuropathy at the wrist or elbow. No electrodiagnostic evidence suggestive of a bilateral neurogenic thoracic outlet syndrome in the muscles and nerves tested. No electrodiagnostic evidence of a bilateral C8-T1 motor radiculopathy in the muscles and nerves tested. Pawan Nitoeliudjuan antonio, DO Felipe Bruce, DO Nerve Conduction Studies Anti Sensory Summary Table Stim Site NR Peak (ms) Norm Peak (ms) P-T Amp (??V) Norm P-T Amp Site1 Site2 Delta-P (ms) Dist (cm)Johnny (m/s) Norm Johnny (m/s) Left Med Ante Brach Cutan Anti Sensory (Med Forearm) 32.4 ??C Elbow 1.9 <2.6 14.3 >3 Elbow Med Forearm 1.9 10.0 53 Right Med Ante Brach Cutan Anti Sensory (Med Forearm) 32 ??C Elbow 2.2 <2.6 12.7 >3 Elbow Med Forearm 2.2 10.0 45 Left Median Acr Palm Anti Sensory (3rd Digit) 33.1 ??C Wrist 4.7 <3.7 26.3 >20 Wrist 3rd Digit 4.7 14.0 30 Palm 2.1 <1.9 14.8 Palm 3rd Digit 2.1 7.0 33 Right Median Acr Palm Anti Sensory (3rd Digit) 32.8 ??C Wrist 3.5 <3.7 39.9 >20 Wrist 3rd Digit 3.5 14.0 40 Palm 1.8 <1.9 34.4 Palm 3rd Digit 1.8 7.0 39 Left Ulnar Anti Sensory (5th Digit) 33.6 ??C Wrist 3.4 <3.7 47.8 >20 Wrist 5th Digit 3.4 14.0 41 Right Ulnar Anti Sensory (5th Digit) 32.6 ??C Wrist 3.3 <3.7 24.8 >20 Wrist 5th Digit 3.3 14.0 42 Motor Summary Table Stim Site NR Onset (ms) Norm Onset (ms) O-P Amp (mV) Norm O-P Amp Site1 Site2 Delta-0 (ms) Dist (cm) Johnny (m/s) Norm Johnny (m/s) Left Median Motor (Abd Poll Brev) 32.9 ??C Wrist 4.7 <4.3 10.6 >4 Elbow Wrist 4.8 23.0 48 >45 Elbow 9.5 9.8 Right Median Motor (Abd Poll Brev) 32.8 ??C Wrist 3.6 <4.3 10.0 >4 Elbow Wrist 4.6 23.0 50 >45 Elbow 8.2 8.3 Left Ulnar Motor (Abd Dig Minimi) 31.2 ??C Wrist 3.2 <4.3 10.0 >2 B Elbow Wrist 3.2 19.0 59 >45 B Elbow 6.4 9.6 A Elbow B Elbow 2.7 14.0 52 >45 A Elbow 9.1 9.3 Right Ulnar Motor (Abd Dig Minimi) 31.3 ??C Wrist 3.3 <4.3 9.1 >2 B Elbow Wrist 3.3 21.0 64 >45 B Elbow 6.6 9.0 A Elbow B Elbow 2.5 14.0 56 >45 A Elbow 9.1 8.7 Comparison Summary Table Stim Site NR Peak (ms) Norm Peak (ms) P-T Amp (??V) Norm P-T Amp Site1 Site2 Delta-P (ms) Norm Delta (ms) Left Median/Radial Dig I Comparison (Digit 1) 33.2 ??C Median 3.8 <3.2 10.9 >20 Median Radial 1.3 <0.4 Radial 2.5 <2.9 7.1 >5 Right Median/Radial Dig I Comparison (Digit 1) 32.8 ??C Median 2.7 <3.2 26.8 >20 Median Radial 0.0 <0.4 Radial 2.7 <2.9 6.1 >5 EMG Side Muscle Nerve Root Ins Act Fibs Psw Other Amp Dur Poly Recrt Comment Left 1stDorInt Ulnar C8-T1 Nml 0 0 Nml Nml 0 Nml Left Abd Poll Brev Median C8-T1 Nml 0 0 Nml Nml 0 Nml Right 1stDorInt Ulnar C8-T1 Nml 0 0 Nml Nml 0 Nml Right Abd Poll Brev Median C8-T1 Nml 0 0 Nml Nml 0 Nml Waveforms: documented in this encounter Plan of Treatment Upcoming Encounters Date Type Department Care Team (Late st Contact Info) Description 02/12/2025 11:00 AM EDT Appointment [facility] [address] [place] [address] 03/05/2025 2:10 PM EDT Office Visit [facility] [address] [place] [phone] Humza Tenorio MD [address] [phone] 03/15/2025 8:20 AM EDT Office Visit [facility] at [facility] [address] [place] [address] Adilia Dickson, DO [address] [place] [address] 04/11/2025 9:50 AM EDT Office Visit [facility] at [facility] [address] [place] [address] Adilia Dickson, DO [address] [place] [address] documented as of this encounter Procedures Procedure Name Priority Date/Time Associated Diagnosis Comments EMG / NERVE CONDUCTION STUDY Routine 12/26/2024 9:00 AM EDT Hand paresthesia documented in this encounter Results * EMG / NERVE CONDUCTION STUDY (12/26/2024 9:00 AM EDT) Anatomical Region Laterality Modality Other Narrative 12/26/2024 9:00 AM EDT Felipe Bruce DO 12/27/2024 1:43 PM EMG / Nerve Conduction Study Date/Time: 12/26/2024 9:00 AM Performed by: Felipe Bruce DO Authorized by: Adilia Dickson DO Consent: Consent obtained: Written and verbal Consent given by: Patient Risks, benefits, and alternatives were discussed: yes Risks discussed: Bleeding, infection and pain Weston protocol: Procedure explained and questions answered to patient or proxy's satisfaction: yes Immediately prior to procedure, a time out was called: yes Patient identity confirmed: Verbally with patient Indications: Indications: Paresthesias Pre-procedure details: Procedure prep: alcohol swap prior to insertion of EMG electrode. Sedation: Sedation type: None Anesthesia: Anesthesia method: None Post-procedure details: Procedure completion: Tolerated well, no immediate complications Adilia Dickson DO NEUROLOGY ORDERABLES Final Result documented in this encounter Visit Diagnoses Diagnosis Left median nerve neuropathy- Primary Carpal tunnel syndrome, unspecified laterality Hand paresthesia Disturbance of skin sensation documented in this encounter Additional Health Concerns Assessment Noted Time PHQ-9 Depression Total Score: 0 12/27/19 25 9:07 AM EDT A fall risk assessment has been complete d for the patient 12/26/2024 9:07 AM EDT A Body Mass Index follow-up plan has been documented for the patient 12/27/2024 1:43 PM EDT documented as of this encounter Care Teams Nurse Practitioner Home Assessments Relationship Specialty Start Date End Date Jose Quispe MD [address] [place] [address] PCP - General 12/20/20 documented as of this encounter
--- OUTSIDE RECORDS SUMMARY | 2025-01-26 07:45 | XMS_ITS ---
Author [facility] Address [address] [facility] [address] [place] [id number] Care Team Providers Care Theatrical Variety Agent Name Role Phone Carmen Lackey Primary Care Provider [phone] Jose Quispe Unavailable [phone] Allergies No Known Allergies REASON FOR VISIT Right Ear Stopped Up Medications Medication SIG (Take, Route, Frequency, Duration) Notes Start Date End Date Status amLODIPine Besylate 10 mg TAKE 1/2 TABLE T BY MOUTH EVERY DAY; Duration: 30 Active hydroCHLOROthiazide 25 mg TAKE ONE TABLE T BY MOUTH EVERY DAY IN THE MORNING; Duration: 30 Active valACYclovir HCl 1 GM TAKE TWO TABLETS B Y MOUTH TWICE DAILY; Duration: 1 Active Metoprolol Succinate ER 100 mg 1 tablet orally daily; Duration: 30 days Active Omeprazole 20 mg TAKE ONE CAPSULE BY MOUTH EVERY DAY; Duration: 30 days Active Irbesartan 300 MG 1 tablet Orally Once a day Active Albuterol Sulfate HFA 108 (9 0 Base) MCG/ACT 2 puff(s) inhaled qid and q2h prn Active Triamcinolone Acetonide 0.1 % 1 applicat ion Externally Twice a day 09/20/2024 Active Diclofenac Sodium 75 MG 1 tablet as need ed Orally Twice a day Active Fluticasone Propionate 50 MCG/ACT 1 spray(s) in each nostril once a day 07/07/2022 Active ZyrTEC Allergy 10 MG 1 tab(s) orally onc e daily Active Vital Signs Blood pressure systolic 132 mm Hg 01/27/20 25 Blood pressure diastolic 82 mm Hg 025 Heart Rate 63 /min 01/26/2025 Height 68 in 01/26/2025 Weight 228 lbs 01/26/2025 BMI 34.66 kg/m2 01/26/2025 Encounters Encounter Location Date Provider Diagnosis [facility] [address] [facility] [address] [facility] [address] [place] [id number] 01/26/2025 Jose Quispe Non-seasonal allergi c rhinitis, unspecified trigger J30.89 ; Otalgia of right ear H92.01 and Excessive wax in right ear H61.21 Assessments Encounter Date Diagnosis (ICD Code) Assessment Notes Treatment Notes Treatment Clinical Notes Section Notes 01/26/2025 Non-seasonal allergic rhinitis, unspecified trigger (ICD-10 - J30.89) 01/26/2025 Otalgia of right ear (ICD-10 - H92.01) 01/26/2025 Excessive wax in right ear (ICD-10 - H61.21) Plan Of Treatment Medication Medication Name Sig Start Date Stop Date Notes Fluticasone Propionate 50 MCG/ACT 1 spray(s) in each nostril once a day 07/07/2022 ZyrTEC Allergy 10 MG 1 tab(s) orally once daily Next Appt Details Follow Up: via phone to repo rt progress, Reason: Provider Name:Carmen Mcbride, 02/20/2025 10:15:00 AM, [address] [facility] [address] [facility], [address], [place], [id number], Procedure Notes * Category Sub-Category Detail Notes Irrigation Of Ears Procedure Ear prepped b y soaking with H2O2, Flushed with peroxide and warm water, Ears irrigated free of most debris Location Right Progress Notes * TERESA MCKEONDOB:1970 ( 54 yo M)Acc No.[id number]:01/26/2025 Progress Notes Patient: TERESA MALLOY Provider: Corwin Quispe M.D. :1970 A ge:54 Y S ex:Male Date:01/26/2025 Address:[id number] Pcp:Carmen Lackey Subjective: * Chief Complaints: * 1 . Right Ear Stopped Up. * HPI: E NT/respiratory: 54 year old male presents with c/o ear stopped up P t complains of rt ear feeling full for about a week. Pt denies pain and drainage. * ROS: D ERMATOLOGY: no R samanta. n o H jeannine. G ASTROENTEROLOGY: no N ausea. n o V omiting. n o D iarrhea.? U ROLOGY: no D ifficulty urinating. n o B lood in urine. * Medical History: H ypertension, SVT, Allergies, Asthma, Low Back Pain, Lumbar Disc Disease, Lumbar Disc Herniation (2014?), s/p pain management treatment with epidural injections (2014&2017). * Surgical History: S inus Surgery 2007, Cholecystectomy 09/09/2018. * Hospitalization/Major Diagno stic Procedure: [facility]- [facility] . * Family History: F [...] each nostril once a day , Taking Albuterol Sulfate HFA 108 (90 Base) MCG/ACT Aerosol Solution 2 puff(s) inhaled qid and q2h prn , Taking Triamcinolone Acetonide 0.1 % Cream 1 application Externally Twice a day , Taking Irbesartan 300 MG Tablet 1 tablet Orally Once a day , Taking valACYclovir HCl 1 GM Tablet TAKE TWO TABLETS BY MOUTH TWICE DAILY , Taking hydroCHLOROthiazide 25 mg Tablet TAKE ONE TABLET BY MOUTH EVERY DAY IN THE MORNING , Taking amLODIPine Besylate 10 mg Tablet TAKE 1/2 TABLET BY MOUTH EVERY DAY , Taking Omeprazole 20 mg Capsule Delayed Release TAKE ONE CAPSULE BY MOUTH EVERY DAY , Taking Metoprolol Succinate ER 100 mg Tablet Extended Release 24 Hour 1 tablet orally daily , Discontinued dexAMETHasone 2 MG Tablet 1 tablet Orally every 12 hrs , Discontinued dexAMETHasone 2 MG Tablet 1 tablet Orally every 12 hrs , Medication List reviewed and reconciled with the patient * Allergies: N .K.D.A. Objective: * Vitals: W t: 228, Temp: 97.8, BP: 132/82, HR: 63, Nurse: ruthie, Ht: 68, BMI:34.66. * Examination: E NT/Respiratory: General Appearance: N AD. E ars: r ight canal obstructed by cerumen. N ose : n tena patent, pale, edematous turbinates. Assessment: * Assessment: 1. N on-seasonal allergic rhinitis, unspecified trigger - J30.89 (Primary) 2 .?Otalgia of right ear - H92.01 3 . E xcessive wax in right ear - H61.21 Plan: * Treatment: * Procedures: I rrigation Of Ears: Procedure E ar prepped by soaking with H2O2, Flushed with peroxide and warm water, Ears irrigated free of most debris. L ocation R ight. ? * Procedure Codes: 6 9210 EAR IRRIGATION, 1036F TOBACCO NON-USER, G8783 BP SCR PRFRM RCMDD DEFIND SCR INTVL, G8752 MOST RECENT SYSTOLIC BP < 140MM HG, G8754 MOST RECENT DIASTOLIC BP < 90MM HG * Follow Up: v ia phone to report progress * Images: Billing Information: * Visit Code: 41142 Office Visit, Est Pt., Level 3. Modifiers: 25 * Procedure Codes: 97729 EAR IRRIGATION. 1036F TOBACCO NON-USER. G8783 BP SCR PRFRM RCMDD DEFIND SCR INTVL. G8752 MOST RECENT SYSTOLIC BP < 140MM HG. G8754 MOST RECENT DIASTOLIC BP < 90MM HG. * Electronic signature of Grisel Quispe MD on 02/11/2025 at 12:21 PM EDT Sign off status: Pending * Provider: Corwin Quispe M.D. Date: 0 01/26/2025 Generated for Bro magaña/Leslie/Anette on: 0 02/11/2025 12:21 PM EDT History and Physical Notes * HPI (History of Present Illness) Category Sub-Category Detail Notes Category Not es ENT/respiratory ear stopped up Pt complains of rt ear feeling full for about a week. Pt denies pain and drainage Examination Category Sub-Category Detail Notes Category Not es ENT/Respiratory Ears: right canal obstructed by cerumen General Appearance: NAD Nose : nares patent, pale, edematous turbinates
--- OUTSIDE RECORDS SUMMARY | 2025-01-29 09:50 | XMS_ITS | Encounter Summary ---
Author Organization [facility] Address [address] [id number] Care Team Providers Care [employer] Name Role Phone Jose Quispe MD Primary Care Provider [phone] Reason for Referral * Imaging (Routine) - Authorized Specialty Diagnoses / Procedures Referred By Rosaline middleton Referred To Contact Cardiology Diagnoses TOS (thoracic outlet syndrome) Hand paresthesia Thoracic outlet syndrome of left thoracic outlet Procedures VAS Wrist Brachial Index - Segmental Adilia Dickson DO [address] [place] [address] Phone: tel: fax: Referral ID Status Reason Start Date Expiration Date Visits Requested Visits Authorized [id number] Authorized Perform Procedure 01/29/2025 07/31/2026 1 1 * Consultation (Routine) - Authorized Specialty Diagnoses / Procedures Referred By Rosaline middleton Referred To Contact Occupational Therapy Diagnoses TOS (thoracic outlet syndrome) Obesity (BMI 30.0-34.9) Carpal tunnel syndrome, unspecified laterality Adilia Dickson DO [address] [place] [address] Phone: tel: fax: Referral ID Status Reason Start Date Expiration Date Visits Requested Visits Authorized [id number] Authorized Specialty Services Required 01/29/2025 07/31/2026 1 1 * Consultation (Routine) - Authorized Specialty Diagnoses / Procedures Referred By Rosaline t Referred To Contact Hand Surgery Diagnoses TOS (thoracic outlet syndrome) Obesity (BMI 30.0-34.9) Carpal tunnel syndrome, unspecified laterality Adilia Dickson DO [address] [place] [address] Phone: tel: fax: Torito Jordan [address] [place] [address] Phone: tel: fax: Referral ID Status Reason Start Date Expiration Date Visits Requested Visits Authorized [id number] Authorized Specialty Services Required 01/29/2025 07/31/2026 1 1 Encounter Details Date Type Department Care Team (Late st Contact Info) Description 01/29/2025 9:50 AM EDT Office Visit [facility] at [facility] [address] [facility] [place] [address] Adilia Dickson DO [address] [place] [address] TOS (thoracic outlet syndrome) (Primary Dx); Obesity (BMI 30.0-34.9); Carpal tunnel syndrome, unspecified laterality; Somatic dysfunction of head region; Somatic dysfunction of cervical region; Somatic dysfunction of rib region; Somatic dysfunction of upper extremity; Somatic dysfunction of lower extremity; Somatic dysfunction of pelvis region; Somatic dysfunction of thoracic region; Somatic dysfunction of lumbar region; Hand paresthesia; Lumbar spondylosis; Chronic elbow pain, right; Left median nerve neuropathy; Thoracic outlet syndrome of left thoracic outlet Social History Tobacco Use Types Packs/Day Years [...] Sign Reading Time Taken Comments Blood Pressure 145/88 01/29/2025 10:10 AM EDT Pulse 57 01/29/2025 10:10 AM EDT Temperature - - Respiratory Rate - - Oxygen Saturation 99% 01/29/2025 10:10 AM EDT Inhaled Oxygen Concentration - - Weight 104 kg (230 lb) 01/29/2025 10:10 AM EDT Height 172.7 cm (5' 8 ) 01/29/2025 10:10 AM EDT Body Mass Index 34.97 01/29/2025 10:10 AM EDT documented in this encounter Miscellaneous Notes * Progress Notes - Adilia Dickson, DO - 01/29/2025 9:50 AM EDT Physical Medicine and Rehabilitation Outpatient Follow Up Visit Chief Complaint: left sided hip pain Background History: Humza Yanez is a 54 y.o. male with past medical history of HTN, obesity who presented for severe,chronic low back pain that has responded well to OMT. He has not has an exacerbation in the last few months. 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 He will sometimes experience back or elbow pain but these usually improve within a couple of days. However he does have achy back pain and was referred to Interventional pain. He was last seen by IVP on 06/27/24 for Bilateral L4/L5 and L5/S1 Facet Medial Branch Blocks x2, RFA planned. Interval History: Today, patient reports that he is tired today. He took diclofenac 75mg BID a couple of days last week for a flare. States that it helped with back pain. He continues to have worsening bilateral hand numbness while working and upon waking. Reports that numbness is the entire hand. Details of past medical history, surgical history, family history, and social history reviewed in the medical record. Allergies: No Known Allergies Medications: Current Outpatient Medications: albuterol 108 (90 Base) MCG/ACT inhaler, Inhale 1 puff as needed., Disp: , Rfl: amLODIPine (Norvasc) 10 MG tablet, Take by mouth 1 (one) time each day., Disp: , Rfl: cetirizine (ZyrTEC ALLERGY) 10 MG tablet, Take by mouth 1 (one) time each day at the same time., Disp: , Rfl: diazePAM (Valium) 10 MG tablet, Take 1 tablet (10 mg) by mouth as needed. For procedures, Disp: , Rfl: diclofenac (Voltaren) 75 MG EC tablet, Take 1 tablet (75 mg) by mouth 2 (two) times a day. Do not crush, chew, or split., Disp: 60 tablet, Rfl: 2 hydroCHLOROthiazide (HYDRODiuril) 25 MG tablet, Take 1 tablet (25 mg) by mouth daily., Disp: , Rfl: irbesartan (Avapro) 300 MG tablet, Take 1 tablet (300 mg) by mouth daily., Disp: , Rfl: metoprolol succinate XL (Toprol-XL) 100 MG 24 hr tablet, Take 1 tablet (100 mg) by mouth daily., Disp: , Rfl: omeprazole (PriLOSEC) [address] capsule, Take 1 capsule (20 mg) by mouth daily., Disp: , Rfl: valACYclovir (Valtrex) 1 g tablet, Take 2 tablets (2,000 mg) by mouth as needed (Cold sores)., Disp: , Rfl: The following portions of the chart were reviewed this encounter and updated as appropriate: Tobacco Allergies Meds Problems Med Hx Surg Hx Fam Hx ROS: 14 point ROS negative except for above. Physical Examination: Visit Vitals BP (!) 145/88 Pulse 57 Ht 1.727 m (5' 8 ) Wt 104 kg (230 lb) SpO2 99% BMI 34.97 kg/m?? Some recent data might be hidden Constitutional: Well-developed, no acute distress and well nourished. Psychiatric: Follows commands and alert Eyes: EOMI and anicteric. NCAT. Neck: supple, trachea midline Respiratory: Normal effort and normal rate. Cardiovascular: No edema and no clubbing. Skin: Warm, dry and intact, no cyanosis Neurologic: Speech is fluent, muscle tone normal. MSK: Gait intact. Range of motion was within functional limits Motor Exam: Antigravity Left pos Vero Osteopathic Structural examination: Head: OAFRSR, occipital fascial tension Cervical spine: [id number], suboccipital fascial tension Thoracic spine: T1FSRR paraspinal fullness Ribs and sternum: left 2-4exhaled Abdomen: Upper extremities: bilateral radial head dysfunction in pronation with tenderness; b/l ACJ restriction, left carpal joint restrictions Lumbar spine: L5FSRR, paraspinal fullness Pelvis: left outflare innominate Sacrum: R on R torsion Lower extremities: b/l iliopsoas hypertonicity with TP DATA: I personally reviewed: EDX and IVP. XRAY === 03/21/24 === XR LUMBAR SPINE 2 OR 3 VIEWS - Narrative - CLINICAL INDICATION: pain TECHNIQUE: XR LUMBAR SPINE 2 OR 3 VIEWS COMPARISON: None. FINDINGS: Mild right lumbar spine curvature. Grade 1 retrolisthesis L1 on L2, L2 on L3, L3 on L4 and L4 on L5. Mild multilevel disc space narrowing. Mild to moderate degenerative changes, with marginal osteophytes and facet hypertrophy, more pronounced at L3-4, L4-L5 and L5-S1. No acute fractures or dislocations. Surgical clips in the right upper abdominal quadrant. - Impression - Degenerative changes and alignment as above described. CRITICAL RESULT: No. COMMUNICATION: Per this written report. Drafted by Dennys Art MD on 03/21/2024 10:00 AM Final report signed by Dennys Art MD on 03/21/2024 10:01 AM MRI === 07/10/24 === MR LUMBAR SPINE WO IV CONTRAST - Narrative - CLINICAL INDICATION: Lumbar radiculopathy, symptoms persist with > 6 wks treatment TECHNIQUE: Multiplanar multiecho sequences were obtained through the lumbar spine utilizing T1 and T2 weighting without the administration of intravenous contrast. 6 series were obtained including localizer series. COMPARISON: Radiograph 03/21/2024 FINDINGS: Diagnostic Quality: Adequate. Anatomic Variants: None. Alignment: Grade 1 anterolisthesis of L5 on S1. Marrow: Modic type II endplate changes at T12-L1 and L3-L4 Vertebrae and Intervertebral Discs: Vertebral body heights are maintained. Multilevel disc desiccation, without significant height loss. Conus: The conus is of normal caliber without abnormal intrinsic signal. The conus terminates at the T12-L1 level. Degenerative changes are as follows: T12-L1: Mild facet arthropathy. No significant spinal canal or neural foraminal stenosis. L1-L2: Mild facet arthropathy. No significant spinal canal or neural foraminal stenosis. L2-L3: Disc bulge with annular fissure. Facet arthropathy. No significant spinal canal or neural foraminal stenosis. L3-L4: Disc bulge with right subarticular annular tear and disc extrusion with caudal migration. Facet arthropathy. No significant canal stenosis and however there is narrowing of the right subarticular zone. Moderate right and mild left neural foraminal stenosis. L4-L5: Disc bulge and facet arthropathy. No significant spinal canal stenosis. Mild bilateral neural foraminal stenosis. L5-S1: Broad disc bulge. Mild facet arthropathy. No significant spinal canal or neural foraminal stenosis. Prevertebral and Paraspinal Soft Tissues: There is no prevertebral or paraspinal soft tissue swelling or mass. Other Findings: None. - Impression - Multilevel spondylotic changes as detailed above, most pronounced at L3-L4. CRITICAL RESULT: No. COMMUNICATION: Per this written report. By electronically signing this report, I, the attending physician, attest that I have personally reviewed the images/data for the above examination(s) and agree with the final edited report. Drafted by Connor Fischer DO on 07/12/2024 3:01 PM Final report signed by Jay Thomas MD on 07/13/2024 2:21 PM Assessment: Humza Yanez is a 54 y.o. male with the following: Acute on chronic exacerbation Diagnoses and all orders for this visit: TOS (thoracic outlet syndrome) - General DME - Ambulatory referral to Hand Surgery; Future - Ambulatory referral to Occupational Therapy; Future Obesity (BMI 30.0-34.9) - General DME - Ambulatory referral to Hand Surgery; Future - Ambulatory referral to Occupational Therapy; Future Carpal tunnel syndrome, unspecified laterality - General DME - Ambulatory referral to Hand Surgery; Future - Ambulatory referral to Occupational Therapy; Future Plan: - He has EDX evidence left moderate CT. Will give referral to OT and splint given in clinic. - There is also concern for left sided thoracic outlet syndrome. Will order u/s to assess for arterial TOS. No evidence of neurogenic on EDX. - Patient examination revealed somatic dysfunction, based on SD and HPI patient was offered OMT. Patient consented to treatment and 8 areas were treated. - For mild pain, take OTC tylenol up to 3g daily, or if not contraindicated OTC NSAID of choice according directions on the bottle. No follow-ups on file. Procedure(s) performed today: Procedure: Osteopathic Manipulative Treatment (OMT) Risks and benefits of the procedure were discussed with the patient. Consent was obtained prior to the procedure. A time out was performed to verify the correct patient, site and procedure. The patient was placed in the standard position(s) for treatment(s) applied. Region(s) of Dysfunction: cranial, cervical spine, thoracic spine, lumbar spine, pelvis, rib cage, upper extremity, and lowerextremity Number of Regions Treated: 7-8 Combination of Techniques used: Myofascial Release, Balanced Ligamentous Tension, Muscle Energy Technique, and High Velocity, Low Amplitude Patient Status: The patient tolerated the procedure well. Complications: There were no immediate complications following the procedure Patient Instructions: Patient voiced understanding that they may experience post-treatment sorenessfor approximately 1-3 days after OMT which is an expected response. Patient encouraged to utilize heat/ice, to increase water intake today, and to use gentle stretching as tolerated to help mitigate this. documented in this encounter Plan of Treatment Upcoming Encounters Date Type Department Care Team (Late st Contact Info) Description 02/12/2025 11:00 AM EDT Appointment [facility] [address] [place] [address] 03/05/2025 2:10 PM EDT Office Visit [facility] [address] [place] [phone] Humza Tenorio MD [address] [place] [address] 03/15/2025 8:20 AM EDT Office Visit [facility] [address] [place] [address] Adilia Dickson, DO [address] [place] [phone] 04/11/2025 9:50 AM EDT Office Visit [facility] [address] [place] [phone] Adilia Dickson, DO [address] [place] [phone] Scheduled Orders Name Type Priority Associated Diagnoses Orde r Schedule VAS Wrist Brachial Index - Segmental Vascular Ultrasound Routine TOS (thoracic outlet syndrome) Hand paresthesia Thoracic outlet syndrome of left thoracic outlet Expected: 01/29/2025, Expires: 08/02/2026 Scheduled Referrals Name Type Priority Associated Diagnoses Order Schedule Ambulatory referral to Hand Surgery Outpatient Referral Routine TOS (thoracic outlet syndrome) Obesity (BMI 30.0-34.9) Carpal tunnel syndrome, unspecified laterality 1 Occurrences starting 01/29/2025 until 08/02/2026 Ambulatory referral to Occupational Therapy Outpatient Referral Routine TOS (thoracic outlet syndrome) Obesity (BMI 30.0-34.9) Carpal tunnel syndrome, unspecified laterality Expected: 01/29/2025 (Approximate), Expires: 08/02/2026 documented as of this encounter Visit Diagnoses Diagnosis TOS (thoracic outlet syndrome)- Primary Brachial plexus lesions Obesity (BMI 30.0-34.9) Carpal tunnel syndrome, unspecified laterality Somatic dysfunction of head region Somatic dysfunction of cervical region Nonallopathic lesion of cervical region, not elsewhere classified Somatic dysfunction of rib region Somatic dysfunction of upper extremity Somatic dysfunction of lower extremity Somatic dysfunction of pelvis region Nonallopathic lesion of pelvic region, not elsewhere classified Somatic dysfunction of thoracic region Nonallopathic lesion of thoracic region, not elsewhere classified Somatic dysfunction of lumbar region Nonallopathic lesion of lumbar region, not elsewhere classified Hand paresthesia Disturbance of skin sensation Lumbar spondylosis Lumbosacral spondylosis without myelopathy Chronic elbow pain, right Left median nerve neuropathy Thoracic outlet syndrome of left thoracic outlet documented in this encounter Additional Health Concerns Assessment Noted Time PHQ-9 Depression Total Score: 0 12/27/19 9:07 AM EDT A fall risk assessment has been complete d for the patient 12/26/2024 9:07 AM EDT A Body Mass Index follow-up plan has been documented for the patient 01/29/2025 6:09 PM EDT documented as of this encounter Care Teams [employer] Relationship Specialty Start Date End Date Jose Quispe MD [address] [place] [address] PCP - General 12/20/20 documented as of this encounter
[2025-02-11] VITALS (7 sets, daily range): BP systolic 122–147; BP diastolic 72–90; PULSE 72–89; RESP 14–20; TEMP 36.8–36.9; O2SAT 97–100; BMI 34.2
--- OUTSIDE RECORDS SUMMARY | 2025-02-11 12:21 | XMS_ITS ---
Author Organization Unknown Medications Medication Instructions Effective Dates (start - stop) Status azithromycin 500 MG Oral Tablet [id number]:00:00.000+00:00 - Completed valacyclovir 1000 MG Oral Tablet [id number]:00:00.000+00:00 - Completed omeprazole 20 MG Delayed Rel ease Oral Capsule [id number]:00:00.000+00:0 0 - Completed omeprazole 20 MG Delayed Rel ease Oral Capsule [id number]:00:00.000+00:0 0 - Completed omeprazole 20 MG Delayed Rel ease Oral Capsule [id number]:00:00.000+00:0 0 - Completed omeprazole 20 MG Delayed Rel ease Oral Capsule [id number]:00:00.000+00:0 0 - Completed [id number] 200 ACTUAT albuter ol 0.09 MG/ACTUAT Metered Dose Inhaler [id number]:00:00.000+00:0 0 - Completed 24 HR metoprolol succinate 1 00 MG Extended Release Oral Tablet [id number]:00:00.000+0 0:00 - Completed 24 HR metoprolol succinate 1 00 MG Extended Release Oral Tablet [id number]:00:00.000+0 0:00 - Completed cefdinir 300 MG Oral Capsule 10-11-14:00:00.000+00:00 - Completed 24 HR metoprolol succinate 1 00 MG Extended Release Oral Tablet [id number]:00:00.000+0 0:00 - Completed {21 (methylprednisolone 4 MG Oral Tablet) } Pack [id number]:00:00.000+00:0 0 - Completed 24 HR metoprolol succinate 1 00 MG Extended Release Oral Tablet [id number]:00:00.000+0 0:00 - Completed fluticasone propionate 0.05 MG/ACTUAT Metered Dose Nasal [place] [id number]:00:00.000+00:0 0 - Completed Patient Care team information Name Category Status Period Participants - - Proposed period not known -
--- OUTSIDE RECORDS SUMMARY | 2025-02-11 12:21 | XMS_ITS | Encounter Summary ---
Author Organization Healthcare Address [address] [place] [address] Care Team Providers Care Call Center Assistant Name Role Phone Jose Quispe MD Primary Care Provider Encounter Details Date Type Department Care Team (Latest Contact Info) Description 02/07/2025 Travel Social History Tobacco Use Types Packs/Day Years [...] AM EDT documented as of this encounter Plan of Treatment Upcoming Encounters Date Type Department Care Team (Late st Contact Info) Description 02/12/2025 11:00 AM EDT Appointment [facility] [address] [facility] [address] [place] [address] 03/05/2025 2:10 PM EDT Office Visit [facility] [address] [address] Humza Tenorio MD [address] [phone] 03/15/2025 8:20 AM EDT Office Visit [facility] at [facility] [address] [place] [phone] Adilia Dickson, DO [address] [place] [address] 04/11/2025 9:50 AM EDT Office Visit [facility] [address] [place] [place] [address] Adilia Dickson, DO [address] [place] [address] documented as of this encounter Visit Diagnoses Not on filedocumented in this encounter Additional Health Concerns Assessment Noted Time PHQ-9 Depression Total Score: 0 12/27/19 9:07 AM EDT A fall risk assessment has been complete d for the patient 12/26/2024 9:07 AM EDT A Body Mass Index follow-up plan has been documented for the patient 01/29/2025 6:09 PM EDT documented as of this encounter Care Teams Call Center Assistant Relationship Specialty Start Date End Date Jose Quispe MD [address] [facility] [address] [place] [address] PCP - General 12/20/20 documented as of this encounter
--- OUTSIDE RECORDS SUMMARY | 2025-02-11 12:21 | XMS_ITS | Encounter Summary ---
Author Organization Healthcare Address [address] 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 Name Role Phone Jose Quispe MD Primary Care Provider [phone] Encounter Details Date Type Department Care Team (Latest Contact Info) Description 12/17/2024 Travel Social History Tobacco Use Types Packs/Day [...] EDT Appointment [facility] [address] [facility] [address] [place] [address] 03/05/2025 2:10 PM EDT Office Visit [facility] [address] [place] [address] Humza Tenorio MD [address] [phone] 03/15/2025 8:20 AM EDT Office Visit [facility] at [facility] [address] [place] [phone] Adilia Dickson, DO [address] [place] [address] 04/11/2025 9:50 AM EDT Office Visit [facility] [address] [place] [address] Adilia Dickson, DO [address] [place] [address] documented as of this encounter Visit Diagnoses Not on filedocumented in this encounter Additional Health Concerns Assessment Noted Time PHQ-9 Depression Total Score: 0 08/29/19 25 2:46 PM EST A fall risk assessment has been complete d for the patient 12/04/2024 11:22 AM EDT A Body Mass Index follow-up plan has been documented for the patient 12/04/2024 11:46 AM EDT documented as of this encounter Care Teams 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
--- OUTSIDE RECORDS SUMMARY | 2025-02-11 12:21 | XMS_ITS | Clinical Summary ---
Author Organization [facility] Address [address] [place] [address] Care Team Providers Care Sales Activity Manager Name Role Phone Jose Quispe MD Primary Care Provider [phone] Allergies No known active allergies Medications metoprolol succinate XL (Toprol-XL) 100 MG 24 hr tablet Take 1 tablet (100 mg) by mouth daily. 2 Active omeprazole (PriLOSEC) [address] capsule Take 1 capsule (20 mg) by mouth daily. 2 Active albuterol 108 (90 Base) MCG/ACT inhaler Inhale 1 puff as needed. 4 Active valACYclovir (Valtrex) 1 g tablet Take 2 tablets (2,000 mg) by mouth as needed (Cold sores). 4 Active irbesartan (Avapro) 300 MG tablet Take 1 tablet (300 mg) by mouth daily. 4 Active amLODIPine (Norvasc) 10 MG tablet Take by mouth 1 (one) time each day. 4 Active hydroCHLOROthiaz alfredo (HYDRODiuril) 25 MG tablet Take 1 tablet (25 mg) by mouth daily. 4 Active cetirizine (ZyrTEC ALLERGY) 10 MG tablet Take by mouth 1 (one) time each day at the same time. Active diclofenac (Voltaren) 75 MG EC tabletIndication s:Chronic low back pain, unspecified back pain laterality, unspecified whether sciatica present,Lumbar spondylosis,Acut e bilateral low back pain, unspecified whether sciatica present Take 1 tablet (75 mg) by mouth 2 (two) times a day. Do not crush, chew, or split. 60 tablet 2 4 Active diazePAM (Valium) 10 MG tablet Take 1 tablet (10 mg) by mouth as needed. For procedures 5 Active Active Problems Problem Noted Date Diagnosed Date Myofascial pain 11/01/2024 Severe obesity (BMI 35.0-39.9) with comorbidity 03/21/2024 Encounters Date Type Department Care Team Description 02/07/2025 Travel 01/29/2025 9:50 AM EDT Office Visit [facility] [address] [place] [address] Adilia Dickson DO TOS (thoracic outlet syndrome) (Primary Dx); Obesity [...] Thoracic outlet syndrome of left thoracic outlet 01/29/2025 Travel 01/26/2025 Travel 12/26/2024 9:00 AM EDT Procedure Visit [facility] [address] [place] [address] Felipe Bruce DO Left median nerve neuropathy (Primary Dx); Carpal tunnel syndrome, unspecified laterality; Hand paresthesia 12/26/2024 Travel 12/25/2024 Travel 12/18/2024 2:30 PM EDT Office Visit [facility] [address] [place] [phone] Jameson Ramos MD Myalgia, other site 12/18/2024 Travel 12/17/2024 Travel 12/04/2024 11:30 AM EDT Office Visit [facility] [address] [place] [phone] Jameson Ramos MD Myalgia, other site (Primary Dx); Lumbar radiculitis 12/04/2024 Travel 12/03/2024 Travel 11/30/2024 10:20 AM EDT Office Visit [facility] [address] [place] [address] Adilia Dickson F, DO Obesity (BMI 30.0-34.9) (Primary Dx); Chronic elbow pain, right; Lumbar spondylosis; Chronic low back pain, unspecified back pain laterality, unspecified whether sciatica present; TOS (thoracic outlet syndrome); Hand paresthesia; Somatic dysfunction of cervical region; Somatic dysfunction of upper extremity; Somatic dysfunction of lower extremity; Somatic dysfunction of thoracic region; Somatic dysfunction of lumbar region; Somatic dysfunction of rib region; Somatic dysfunction of pelvis region; Somatic dysfunction of sacral region 11/30/2024 Travel 11/29/2024 Travel from Last 3 Months Family History Medical History Relation Name Comments Diabetes Father Hypertension Father Arthritis Mother Relation Name Status Comments Father Mother Social History Tobacco Use Types Packs/Day Years [...] Orientation Straight 03/16/2024 10 :09 AM EDT Last Filed Vital Signs Vital Sign Reading Time Taken Comments Blood Pressure 145/88 01/29/2025 10:10 AM EDT Pulse 57 01/29/2025 10:10 AM EDT Temperature 36.3 C (97.4 F) 12/04/2024 11:22 AM EDT Respiratory Rate 18 12/18/2024 2:34 PM EDT Oxygen Saturation 99% 01/29/2025 10:10 AM EDT Inhaled Oxygen Concentration - - Weight 104 kg (230 lb) 01/29/2025 10:10 AM EDT Height 172.7 cm (5' 8 ) 01/29/2025 10:10 AM EDT Body Mass Index 34.97 01/29/2025 10:10 AM EDT Plan of Treatment Upcoming Encounters Date Type Department Care Team (Late st Contact Info) Description 02/12/2025 11:00 AM EDT Appointment [facility] [address] [place] [address] 03/05/2025 2:10 PM EDT Office Visit [facility] [address] [place] [address] Teresa Tenorio MD [address] [place] [phone] 03/15/2025 8:20 AM EDT Office Visit [facility] [address] [place] [phone] Adilia Dickson, DO [address] [place] [address] 04/11/2025 9:50 AM EDT Office Visit [facility] [address] [place] [phone] Adilia Dickson, DO [address] [place] [phone] Health Maintenance Due Date Last Done Comments [facility]-HIV Screening 1971 [facility]-Hepatitis C Screening 1971 [facility]-/Child/Adol SDOH Screenings 1971 [facility]- SDOH Screenings 1989 [facility]-Adult SDOH Screenings 1989 [facility]-DTaP,Tdap,and Td Vaccines (1 - Tdap) 1990 [facility]-Hepatitis B Vaccines (1 of 3 - 19+ 3-dose series) 1990 CT Colonography 2016 Colonoscopy 2016 FIT-DNA 2016 FIT 2016 FOBT 2016 Sigmoidoscopy 2016 [facility]-Colorectal Cancer Screening 2016 [facility]-Pneumococcal Vaccine: 50+ Years (1 of 1 - PCV) 2021 [facility]-Zoster Vaccines (1 of 2) 2021 [id number] Vaccine (3 - season) 2024 06/09/2021, 08/27/2020 [facility]-Influenza Vaccine (#1) 2025 [facility]-Depression Screening 12/26/2025 12/26/2024, 12/08 [facility]-Obesity Intervention Completed 025, 12/26/2024, 12/18/2024, Additional history exists HPV Vaccines Aged Out No longer eligi ble based on patient's age to complete this topic [facility]-HIB Vaccines Aged Out No longer e ligible based on patient's age to complete this topic [facility]-Hepatitis A Vaccines Aged Out No longer eligible based on patient's age to complete this topic [facility]-IPV Vaccines Aged Out No longer e ligible based on patient's age to complete this topic [facility]-Rotavirus Vaccines Aged Out No lo nger eligible based on patient's age to complete this topic Procedures Procedure Name Priority Date/Time Associated Diagnosis Comments EMG / NERVE CONDUCTION STUDY Routine 12/26/2024 9:00 AM EDT Hand paresthesia INJECT TRIGGER POINTS, > 3 Routine 12/18/2024 2:30 PM EDT Myalgia, other site from Last 3 Months Results * EMG / NERVE CONDUCTION STUDY [...] yes Risks discussed: Bleeding, infection and pain [place] protocol: Procedure explained and questions answered to patient or proxy's satisfaction: yes Immediately prior to procedure, a time out was called: yes Patient identity confirmed: Verbally with patient Indications: Indications: Paresthesias Pre-procedure details: Procedure prep: alcohol swap prior to insertion of EMG electrode. Sedation: Sedation type: None Anesthesia: Anesthesia method: None Post-procedure details: Procedure completion: Tolerated well, no immediate complications us Adilia Moralesrison DO NEUROLOGY ORDERABLES Final Result * INJECT TRIGGER POINTS, > 3 (12/18/2024 2:30 PM EDT) Narrative Jameson Ramos MD - 12/18/2024 2:30 PM EDT Jameson Ramos MD 12/18/2024 2:49 PM Injection - Trigger Point, 3+ Performed by: Jameson Ramos MD Authorized by: Breonna Marsh APRN us Breonna Marsh APRN IN CLINIC/BEDSIDE ORDERAB LES Final Result from Last 3 Months Insurance ANTHEM Care Teams Sales Activity Manager Relationship Specialty Start Date End Date Jose Quispe MD [address] [place] [address] PCP - General 12/20/20
--- OUTSIDE RECORDS SUMMARY | 2025-02-11 12:21 | XMS_ITS | Encounter Summary ---
Author Organization [facility] Address [address] [place] [address] Care Team Providers Care Agile Project Manager Name Role Phone Jose Quispe MD Primary Care Provider [phone] Encounter Details Date Type Department Care Team (Latest Contact Info) Description 01/29/2025 Travel Social History Tobacco Use Types Packs/Day [...] EDT Appointment [facility] [address] [facility] [address] [place] [address] 03/05/2025 2:10 PM EDT Office Visit [facility] [address] [place] [address] Humza Tenorio MD [address] [phone] 03/15/2025 8:20 AM EDT Office Visit [facility] at [facility] [address] [place] [phone] Adilia Dickson, DO [address] [place] [address] 04/11/2025 9:50 AM EDT Office Visit [facility] [address] [place] [address] Adilia Dickson, DO [address] [place] [address] documented as of this encounter [...] documented as of this encounter Care Teams Agile Project Manager Relationship Specialty Start Date End Date Jose Quispe MD [address] [facility] [address] [place] [address] PCP - General 12/20/20 documented as of this encounter
--- OUTSIDE RECORDS SUMMARY | 2025-02-11 12:21 | XMS_ITS | Patient Health Record ---
Author Organization [facility] Address [address] [place] [place] [phone] Care Team Providers Care Brand Protection Manager Name Role Phone Carmen Lackey Primary Care Provider Jose Quispe Unavailable [phone] Allergies No Known Allergies Results Component Value Reference Range Notes colonoscopy Reviewed date:06/08/2024 11:30:46 AM Interpretation: Performing Lab: Notes/Report: CT Scan : Coronary w/o contr ast (calcium scoring) Reviewed date:05/08/2024 10:34:09 AM Interpretation:Calcium score 15 Performing Lab: Notes/Report: Calcium score 15 Covid test (in house) Reviewed date:04/03/2024 09:53:56 AM Interpretation: Performing Lab: Notes/Report: Result: Pos Influenza Screen (in house) Reviewed date:04/03/2024 09:53:47 AM Interpretation: Performing Lab: Notes/Report: results Neg Medications Medication SIG (Take, Route, Frequency, Duration) Notes Start Date End Date Status Diclofenac Sodium 75 MG 1 tablet as need ed Orally Twice a day Active amLODIPine Besylate 10 mg TAKE 1/2 TABLE T BY MOUTH EVERY DAY; Duration: 30 Active Irbesartan 300 MG 1 tablet Orally Once a day Active hydroCHLOROthiazide 25 mg TAKE ONE TABLE T BY MOUTH EVERY DAY IN THE MORNING; Duration: 30 Active valACYclovir HCl 1 GM TAKE TWO TABLETS B Y MOUTH TWICE DAILY; Duration: 1 Active Albuterol Sulfate HFA 108 (9 0 Base) MCG/ACT 2 puff(s) inhaled qid and q2h prn Active Fluticasone Propionate 50 MCG/ACT 1 spray(s) in each nostril once a day 07/07/2022 Active Omeprazole 20 mg TAKE ONE CAPSULE BY MOUTH EVERY DAY; Duration: 90 Active Triamcinolone Acetonide 0.1 % 1 applicat ion Externally Twice a day 09/20/2024 Active Metoprolol Succinate ER 100 mg TAKE ONE TABLET BY MOUTH EVERY DAY; Duration: 90 Active ZyrTEC Allergy 10 MG 1 tab(s) orally onc e daily Active Immunizations Vaccine Route Administration Date Status Comme nts COVID 19 Pfizer Unknown 08/27/2020 Administered COVID 19 Pfizer Unknown 06/09/2021 Administered Problems Problem Type SNOMED Code ICD Code Onset Dates Problem Status W/U Status Risk Notes Problem Essential hypertension (22165609) Essential hypertension (I10) Active confirmed Problem Gastroesophageal reflux disease (983197064) Gastroesophageal reflux disease, esophagitis presence not specified (K21.9) Active confirmed Problem Hyperlipidaemia (28496174) Hyperlipidemia, unspecified hyperlipidemia type (E78.5) Active confirmed Problem Sciatica (36785438) Right-sided low back pain with right-sided sciatica, unspecified chronicity (M54.41) Active confirmed Problem Allergic rhinitis (24754577) Non-seasonal allergic rhinitis, unspecified trigger (J30.89) Active confirmed Problem Primary hypertension (98926749) Primary hypertension (I10) Active confirmed Problem Mild intermittent asthma (723960478) Mild intermittent reactive airway disease without complication (J45.20) Active confirmed Vital Signs Heart Rate 63 /min 01/26/2025 Blood pressure diastolic 82 mm Hg 01/26/2025 Height 68 in 01/26/2025 Blood pressure systolic 132 mm Hg 01/26/2025 Weight 228 lbs 01/26/2025 BMI 34.66 kg/m2 01/26/2025 Encounters Encounter Location Date Provider Diagnosis [facility] [address] [place], [place] [id number] 03/22/2024 Jose [place] Essential hypertensi on I10 [facility] [address] [place], [place] [id number] 04/03/2024 Jose [place] Essential hypertensi on I10 and COVID-19 U07.1 [facility] [address] [place], [place] [id number] 04/24/2024 Jose [place] Well adult exam Z00. 00 ; Colon cancer screening Z12.11 and Encounter for screening for coronary artery disease Z13.6 [facility] [address] [place], [place] [id number] 09/20/2024 Jose [place] Rash R21 ; Itch of s kin L29.9 ; Essential hypertension I10 and Peripheral edema R60.0 [facility] [address] [place], [place] [id number] 01/26/2025 Jose [place] Non-seasonal allergi c rhinitis, unspecified trigger J30.89 ; Otalgia of right ear H92.01 and Excessive wax in right ear H61.21 [facility] [address] [place], [place] [id number] 03/31/2024 Jose [place] [facility] [address] [place] [id number] 05/08/2024 [place] [facility] [address] [place], [place] [id number] 05/22/2024 R Juan C Dary[place] Essential hypertensi on I10 [facility] [address] [place], [place] [id number] 10/11/2024 R Juan C Dary[place] [facility] [address] [place], [place] [id number] 11/21/2024 R Juan C Dary[place] [facility] [address] [facility] [address] [place], [place] [id number] 02/06/2025 R Juan C Dary[place] Assessments Encounter Date Diagnosis (ICD Code) Assessment Notes Treatment Notes Treatment Clinical Notes Section Notes 04/24/2024 Well adult exam (ICD-10 - Z00.00) 04/24/2024 Colon cancer screening (ICD-10 - Z12.11) 01/26/2025 Otalgia of right ear (ICD-10 - H92.01) 01/26/2025 Non-seasonal allergic rhinitis, unspecified trigger (ICD-10 - J30.89) 09/20/2024 Rash (ICD-10 - R21) 09/20/2024 Itch of skin (ICD-10 - L29.9) moisturizer bid to affected areas 04/03/2024 Essential hypertension (ICD-10 - I10) 04/03/2024 COVID-19 (ICD-10 - U07.1) fluids, rest, supportive measures for fever/symptom relief 03/22/2024 Essential hypertension (ICD-10 - I10) Blood pressure journal 05/22/2024 Essential hypertension (ICD-10 - I10) 09/20/2024 Essential hypertension (ICD-10 - I10) Not at goal today, Blood pressure journal 01/26/2025 Excessive wax in right ear (ICD-10 - H61.21) 04/24/2024 Encounter for screening for coronary artery disease (ICD-10 - Z13.6) 09/20/2024 Peripheral edema (ICD-10 - R60.0) Resolved Plan Of Treatment Next Appt Details Provider Name:Carmen Mcbride, 02/20/2025 10:15:00 AM, [address] [facility], [address], [place], [place], [id number], Insurance Providers Payer Name Payer Address Payer Phone Subscriber Number Group Number Insured Name Patient Relationship to Insured Coverage Start Date Coverage End Date [employer] [address] [place] [address] [id number] TERESA MCKEON Self - patient is the insured Medications Administered Medication Instructions Date of Administration Dosage Notes Dexamethasone 01/22/2006 4 mg Dexamethasone 08/11/2018 2 mg Medical (General) History Medical History History ICD Code Hypertension SVT Allergies Asthma Low Back Pain Lumbar Disc Disease Lumbar Disc Herniation (2015 ?), s/p pain management treatment with epidural injections (2014&2018) Surgical History Surgery Date(Month/Year) Sinus Surgery 2008 Cholecystectomy 09/09/2018 Hospitalization History Reason Date(Month/Year) Back Pain- [facility] ER
--- OUTSIDE RECORDS SUMMARY | 2025-02-11 12:22 | XMS_ITS | Encounter Summary ---
Author Organization [facility] Address [address] [place] [address] Care Team Providers Care Cooker Sulfate Name Role Phone Jose Quispe MD Primary Care Provider [phone] Encounter Details Date Type Department Care Team (Latest Contact Info) Description 01/26/2025 Travel Social History Tobacco Use Types Packs/Day [...] EDT Appointment [facility] [address] [facility] [address] [place] [address] 03/05/2025 2:10 PM EDT Office Visit [facility] [address] [place] [address] Humza Tenorio MD [address] [phone] 03/15/2025 8:20 AM EDT Office Visit [facility] [address] [place] [phone] Adilia Dickson, DO [address] [place] [address] 04/11/2025 9:50 AM EDT Office Visit [facility] [address] [place] [address] Adilia Dickson, DO [address] [place] [address] documented as of this encounter [...] documented as of this encounter Care Teams Cooker Sulfate Relationship Specialty Start Date End Date Jose Quispe MD [address] [facility] [address] [place] [address] PCP - General 12/20/20 documented as of this encounter
--- OUTSIDE RECORDS SUMMARY | 2025-02-11 12:22 | XMS_ITS | Encounter Summary ---
Author Organization [facility] Address [address] [place] [address] Care Team Providers Care Vice President Residential Solar Sales Name Role Phone Jose Quispe MD Primary Care Provider [phone] Encounter Details Date Type Department Care Team (Latest Contact Info) Description 12/25/2024 Travel Social History Tobacco Use Types Packs/Day [...] EDT Appointment [facility] [address] [facility] [address] [place] [address] 03/05/2025 2:10 PM EDT Office Visit [facility] [address] [place] [address] Humza Tenorio MD [address] [phone] 03/15/2025 8:20 AM EDT Office Visit [facility] [address] [phone] Adilia Dickson, DO [address] [place] [address] 04/11/2025 9:50 AM EDT Office Visit [facility] [address] [address] Adilia Dickson, DO [address] [place] [address] documented as of this encounter [...] documented as of this encounter Care Teams Vice President Residential Solar Sales Relationship Specialty Start Date End Date Jose Quispe MD [address] [address] PCP - General 12/20/20 documented as of this encounter
--- OUTSIDE RECORDS SUMMARY | 2025-02-11 12:22 | XMS_ITS | Encounter Summary ---
Author Organization [facility] Address [address] [place] [address] Care Team Providers Care Electrical Project Manager Name Role Phone Jose Quispe MD Primary Care Provider [phone] Encounter Details Date Type Department Care Team (Latest Contact Info) Description 12/18/2024 Travel Social History Tobacco Use Types Packs/Day [...] EDT Appointment [facility] [address] [facility] [address] [place] [address] 03/05/2025 2:10 PM EDT Office Visit [facility] [address] [place] [address] Humza Tenorio MD [address] [phone] 03/15/2025 8:20 AM EDT Office Visit [facility] at [facility] [address] [place] [phone] Adilia Dickson, DO [address] [place] [address] 04/11/2025 9:50 AM EDT Office Visit [facility] [address] [place] [address] Adilia Dickson, DO [address] [place] [address] documented as of this encounter [...] documented as of this encounter Care Teams Electrical Project Manager Relationship Specialty Start Date End Date Jose Quispe MD [address] [address] PCP - General 12/20/20 documented as of this encounter
--- OUTSIDE RECORDS SUMMARY | 2025-02-11 12:22 | XMS_ITS | Encounter Summary ---
Author Organization [facility] Address [address] [place] [address] Care Team Providers Care Manager Talent Acquisition Name Role Phone Jose Quispe MD Primary Care Provider [phone] Encounter Details Date Type Department Care Team (Latest Contact Info) Description 12/26/2024 Travel Social History Tobacco Use Types Packs/Day [...] AM EDT documented as of this encounter Functional Status * Over the [...] energy Not at all 12/26/2024 9:07 AM Mariah Randall Poor appetite or overeating Not at all 12/26/2024 9: 07 AM Mariah Randall Feeling bad about yourself - or that you are a failure or have let yourself or your family down Not at all 12/26/2024 9:07 AM Mariah Randall Trouble concentrating on things, such as reading the newspaper or watching television Not at all 12/26/2024 9:07 AM Mariah Randall Moving or speaking so slowly that other people could have noticed? Or the opposite - being so fidgety or restless that you have been moving around a lot more than usual. Not at all 12/26/2024 9:07 AM Mariah Randall Thoughts that you would be better off or hurting yourself in some way Not at all 12/26/2024 9:07 AM Mariah Garcia Patient Health Questionnaire-9 Score 0 12/26/2024 9:07 AM MARIANAT Mariah Silverman * Calculated C-SSRS Risk Score (Lifetime/Recent) Answer Date of Assessment Author No Risk Indicated 12/26/2024 9:07 AM Mariah Fletcher * If you checked off any problems on this questionnaire so far, Question Answer Date of Assessment Author How difficult have these problems made it for you to do your work, take care of things at home, or get along with other people? Not difficult at all 12/26/2024 9:07 AM Mariah Garcia * Question Answer Date of Assessment Author 1. Wish to be (Past 1 Month) No 12/26/2024 9:07 AM Mariah Randall 2. Non-Specific Active Suicidal Thoughts (Past 1 Month) No 12/26/2024 9:07 AM Mariah Randall 6. Suicidal Behavior (Lifetime) No 12/26/2024 9:07 AM EDT Mariah Pérez documented as of this encounter Plan of Treatment Upcoming Encounters Date Type Department Care Team (Late st Contact Info) Description 02/12/2025 11:00 AM EDT Appointment [facility] [address] [place] [address] 03/05/2025 2:10 PM EDT Office Visit [facility] [address] [place] [phone] Humza Tenorio MD [address] [phone] 03/15/2025 8:20 AM EDT Office Visit [facility] at [facility] [address] [place] [address] Adilia Dickson, DO [address] [place] [phone] 04/11/2025 9:50 AM EDT Office Visit [facility] [address] [place] [phone] Adilia Dickson, DO [address] [place] [phone] documented as of this encounter Visit Diagnoses [...] documented as of this encounter Care Teams Manager Talent Acquisition Relationship Specialty Start Date End Date Jose Quispe MD [address] [facility] [address] [place], [place] [phone] PCP - General 12/20/20 documented as of this encounter
--- NOTE | 2025-02-11 12:28 | CT_ITS ---
PROCEDURE INFORMATION: Exam: CT Abdomen And Pelvis With Contrast Exam date and time: 02/11/2025 1:30 PM Age: 54 years old Clinical indication: Abdominal pain TECHNIQUE: Imaging protocol: Computed tomography of the abdomen and pelvis with contrast. Radiation optimization: All CT scans at this facility use at least one of these dose optimization techniques: automated exposure control; mA and/or kV adjustment per patient size (includes targeted exams where dose is matched to clinical indication); or iterative reconstruction. Contrast material: ISOVUE; Contrast volume: 75 ml; Contrast route: IV; COMPARISON: CT HEART W CALCIUM SCORE 05/05/2024 8:50 AM FINDINGS: Lungs: Lung bases are clear as visualized. Diaphragm: Tiny hiatal hernia. Liver: Mild hepatic steatosis. Liver otherwise unremarkable. Gallbladder and biliary ducts: Normal. No calcified stones. No ductal dilation. Pancreas: Normal. No ductal dilation. Spleen: Few calcified granulomas in the spleen. Otherwise unremarkable. Adrenal glands: Normal. No mass. Kidneys and ureters: Normal. No hydronephrosis. Stomach and bowel: Mild wall thickening and mucosal enhancement of the distal sigmoid colon and rectum is noted. Nonspecific. May represent patient's baseline versus mild infectious or inflammatory proctitis. Mild colonic diverticulosis. Appendix: The appendix is normal. Intraperitoneal space: Unremarkable. No free air. No significant fluid collection. Vasculature: Unremarkable. No abdominal aortic aneurysm. Lymph nodes: Unremarkable. No enlarged lymph nodes. Urinary bladder: Unremarkable as visualized. Reproductive: Unremarkable as visualized. Bones/joints: Unremarkable. No acute fracture. Soft tissues: Unremarkable. IMPRESSION: 1. Mild wall thickening and mucosal enhancement of the distal sigmoid colon and rectum is noted. Nonspecific. May represent patient's baseline versus mild infectious or inflammatory proctitis. Otherwise, no bowel obstruction or acute inflammation. 2. The appendix is normal. 3. Mild colonic diverticulosis. 4. Tiny hiatal hernia.
--- NOTE | 2025-02-11 12:31 | ED_ITS ---
<Statement entered by Tg Lopez DO - 02/12/25 07:10> I was consulted by the NANNETTE, and we discussed the complexity of the problems being addressed. I approved the treatment and management plan for this patient's care in the emergency department, thus performing a substantive portion of the medical decision making. After discharge, the patient's stool PCR came back positive for Cryptosporidium. Given this, he was prescribed nitazoxanide gT Lopez DO Discharge Plan Disposition Patient Disposition: Home, Self-Care Prescriptions Prescriptions: New ondansetron HCl 4 mg tablet 4 mg PO Q8H 5 Days Qty: 15 0RF nitazoxanide 500 mg tablet 500 mg PO BID 3 Days Qty: 6 0RF Rx Instructions: must administer with a meal/food No Action losartan 50 mg tablet 50 mg PO DAILY metoprolol tartrate 100 MG tablet 100 mg PO DAILY omeprazole 20 MG tablet,delayed release (DR/EC) 20 mg PO DAILY Referrals Follow up/Referrals: Jose Quispe MD [Primary Care Provider, Medical] - See instructions Activity Restrictions/Add. Instructions Additional Instructions/Restrictions: Increase fluids and rest. Take Zofran as needed for nausea. May take Imodium as well. We will let you know about the diarrhea panel. This is inflammatory versus infectious gastroenteritis based on your CT scan. Please follow-up with your GI doctor if you have further issues. Clinical Impressions Clinical Impression: Dehydration, Diarrhea Instructions Patient Instructions: Diarrhea, DI for Dehydration -- Adult Print Language Print Language: Luxembourgish Discharge ED Provider: Tg Lopez General Adult HPI <Tierra Hartley (ED), [employer] - Last Filed: 02/11/25 17:44> General Chief complaint: Weakness Stated complaint: diarrhea, dehydrated, sent by doctor Time Seen by Provider: 02/11/25 12:16 History of Present Illness HPI narrative: 54-year-old male presents to the ED today for complaint of abdominal pain with diarrhea since . It has been worsening each day. He has had 4 doses of Imodium already today and is still having diarrhea. He has no blood in the stool but lots of bile. He has no gallbladder. He is not eating much but drinking some. He has nausea but no vomiting. No fevers or chills. Patient has history of hypertension, back pain and asthma. He does have a history of a hospitalization due to allergy to MSG products. He is unsure but does not think he has had any exposure to MSG or eaten anything bad. Related Data Home Medications ?Medication ?Instructions ?Recorded ?Confirmed metoprolol tartrate 100 mg tablet 100 mg PO DAILY bloo d pressure 04/26/18 03/11/20 omeprazole 20 mg tablet,delayed 20 mg PO DAILY acid re flux 04/26/18 03/11/20 release losartan 50 mg tablet 50 mg PO DAILY blood pressur e 08/23/18 03/11/20 Previous Rx's ?Medication ?Instructions ?Recorded nitazoxanide 500 mg tablet 500 mg PO BID 3 days #6 tab s 02/11/25 ondansetron HCl 4 mg tablet 4 mg PO Q8H 5 days #15 tab s 02/11/25 Allergies Allergy/AdvReac Type Severity Reaction Status Date / Time No Known Allergies Allergy Verified 03/11/20 09:00 [facility] <Tierra Hartley (ED), [employer] - Last Filed: 02/11/25 17:44> [facility] Disclaimer: The information contained in this section may have been updated after the patient was seen, as this information can be updated by other users. 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 current occupational exposures/hazards: No caffeine: Yes Have you lived/traveled outside [place] in past 30 days?: No Contact w/someone who lives/traveled outside US past 30 days?: No Exposure to someone with infectious disease in past 14 days?: No Do you have a fever (greater than 100.4 F or 38 C)?: No Have you tested positive for COVID-19?: No Exposed to someone with COVID-19 in past 14 days?: No Do you have a sore throat?: No Do you have a cough?: No Do you have any weakness?: No Do you have any diarrhea?: Yes Are you experiencing any unusual bleeding?: No Do you have any muscle aches/pain?: No Do you have any abdominal pain?: No Are you experiencing loss of taste or smell?: No Other Medical History Have you received the Flu Vaccine for this season: No Have you received the Pneumonia Vaccine: No <Tierra Hartley (ED), [employer] - Last Filed: 02/11/25 17:44> ROS Obtained: Yes Systems reviewed as appropriate & no additional complaints except as documented Constitutional Constitutional: Reports as per HPI Physical Exam <Tierra Hartley (ED), [employer] WORK[employer] - Last Filed: 02/11/25 17:44> General General appearance: alert Comment: Patient appears unwell Head Head exam: atraumatic and normocephalic Eye Eye exam: Present normal appearance, PERRL and EOMI ENT ENT exam: Present normal oropharynx and mucous membranes moist Neck Neck exam: Present full ROM and trachea midline Respiratory Respiratory exam: Present normal lung sounds bilaterally Cardiovascular Cardiovascular exam: Present normal rhythm, bradycardia, normal heart sounds, +S1 and +S2 Abdominal Exam Abdominal exam: Present soft and normal bowel sounds Abdominal tenderness: Present diffuse Extremities Exam Extremities exam: Present normal inspection, full ROM and normal capillary refill Neurological Exam Neurological exam: Present alert, oriented X3 and normal gait Skin Skin exam: Present warm, dry and intact Medical Decision Making <Tierra Boyceshawngloria (ED), [employer] WORK[employer] - Last Filed: 02/11/25 17:44> Medical Records Medical records reviewed: Yes I reviewed the patient's medical records. Screening: Per USPSTF and CDC recommendations, given the prevalence of disease in our region, it is our hospital?s policy to screen for HIV and viral Hepatitis for all patients aged 18 and over and those with ongoing risk factors. Shahram Inquiry Pt receiving controlled substance: No Shahram was queried for this patient: No Vital Signs: 02/11/25 12:15 02/11/25 12:48 02/11/25 12:56 Temperature 98.2 F 98.2 F Temperature Source Oral Oral Pulse Rate 80 Pulse Rate [Right] 80 Respiratory Rate 15 15 Blood Pressure 147/90 H Blood Pressure [Right Arm] 147/90 H Blood Pressure Mean [Right Arm] 109 Blood Pressure Source Automatic Cuff Blood Pressure Source [Right Arm] Automatic Cuff Blood Pressure Position Supine Blood Pressure Position [Right Arm] Supine 02 Sat by Pulse Oximetry 98 98 98 Oxygen Delivery Method Room Air Room Air Room Air 02/11/25 14:00 02/11/25 14:15 02/11/25 14:30 Temperature Temperature Source Pulse Rate 75 72 72 Pulse Rate [Right] Respiratory Rate 20 17 17 Blood Pressure 133/76 128/75 129/81 Blood Pressure [Right Arm] Blood Pressure Mean [Right Arm] Blood Pressure Source Blood Pressure Source [Right Arm] Blood Pressure Position Blood Pressure Position [Right Arm] 02 Sat by Pulse Oximetry 99 100 97 Oxygen Delivery Method 02/11/25 14:55 Temperature 98.4 F Temperature Source Oral Pulse Rate 89 Pulse Rate [Right] Respiratory Rate 14 Blood Pressure 122/72 Blood Pressure [Right Arm] Blood Pressure Mean [Right Arm] Blood Pressure Source Automatic Cuff Blood Pressure Source [Right Arm] Blood Pressure Position Sitting Blood Pressure Position [Right Arm] 02 Sat by Pulse Oximetry Oxygen Delivery Method Room Air Lab Data Lab Results 02/11/25 12:25: Urine Color Yellow, Urine Appearance Turbid, Urine pH 6.0, Ur Specific [place] >= 1.030, Urine Protein Trace, Urine Glucose (UA) Negative, Urine Ketones Negative, Urine Blood Negative, Urine Nitrate Negative, Urine Bilirubin Negative, Urine Urobilinogen 0.2, Ur Leukocyte Esterase Negative, Urine RBC None, Urine WBC Occasional, Ur Squamous Epith Cells Occasional, Amorphous Sediment 1+, Urine Bacteria 1+ 02/11/25 12:37: WBC 8.5, RBC 5.63, Hgb 16.0, Hct 48.0, MCV 85.3, MCH 28.4, MCHC 33.3, RDW 13.4, Plt Count 241, MPV 11.8 H, Neut % (Auto) 81.0 H, Lymph % (Auto) 8.2 L, [place] % (Auto) 8.1, Eos % (Auto) 1.8, Baso % (Auto) 0.4, Neut # (Auto) 6.9, Lymph # (Auto) 0.7, [place] # (Auto) 0.7, Eos # (Auto) 0.2, Baso # (Auto) 0.0, Sodium 135 L, Potassium 3.7, Chloride 96 L, Carbon Dioxide 27, Anion Gap 15.7 H, BUN 19, Creatinine 1.10, Estimated Creat Clear 112, Estimated GFR 70, Est GFR ( Amer) 85, Glucose 133 H, Calcium 9.2, Magnesium 2.1, Total Bilirubin 1.3, AST 35, ALT 47, Alkaline Phosphatase 63, Troponin I < 0.01, Total Protein 8.9 H, Albumin 4.9, Globulin 4.0 H, Albumin/Globulin Ratio 1.2, Lipase 145, HCV Ab KVNG w/Rflx PCR Qn Negative, HIV Ag/Ab Combo Qual Negative 02/11/25 13:00: Stl C. cayetanensis PCR Not detected, Stool Rotavirus (PCR) Not detected, Stl Adenov F 40/41 PCR Not detected, Stool Astrovirus (PCR) Not detected, Stool Campylobacter PCR Not detected, Stl C.difficile Tox PCR Not detected, Stool Cryptosporidium PCR Detected A, Stl E.coli Shiga Tox PCR Not detected, Stool E coli O157 PCR Not detected, Stl Enterotoxigenic E PCR Not detected, Stool EPEC (PCR) Not detected, Stool EAEC (PCR) Not detected, Stl E. histolytica PCR Not detected, Stool Giardia Lamblia PCR Not detected, Stool Salmonella PCR Not detected, Stool Sapovirus (PCR) Not detected, Stl P. shigelloides PCR Not detected, Stl Shigella/EIEC PCR Not detected, St Y.enterocolitica PCR Not detected, Stool Vibrio (PCR) Not detected, Stl Vibrio cholerae PCR Not detected, Stl Norovirus GI/GII PCR Not detected 02/11/25 13:09: SARS-CoV-2 (PCR) Not detected, Influenza A Untype (PCR) Not detected, Influenza Type B (PCR) Not detected 02/11/25 12:37 02/11/25 12:37 Orders (Tests/Meds): ED MEDICATIONS Discontinued Medications Generic Name Dose Route Start Last Admin Trade Name Freq PRN Reason Stop Dose Admin Famotidine 20 mg 02/11/25 12:28 02/11/25 12:37 Famotidine 20mg/2ml Vial IV 02/11/25 12:29 20 mg ONCE ONE Administration Sodium Chloride 1,000 mls @ 999 mls/hr 02/11/25 12:28 02/11/25 12:37 Sod Chlor 0.9% 1000ml Bag IV 02/11/25 13:28 999 mls/hr .Q1H1M ONE Administration Sodium Chloride 1,000 mls @ 999 mls/hr 02/11/25 13:45 02/11/25 13:44 Sod Chlor 0.9% 1000ml Bag IV 02/11/25 14:45 999 mls/hr .Q1H1M FABIENNE Administration Sodium Chloride 1,000 mls @ 999 mls/hr 02/11/25 13:48 02/11/25 14:34 Sod Chlor 0.9% 1000ml Bag IV 02/11/25 14:48 Not Given .Q1H1M ONE Iopamidol 75 ml 02/11/25 13:27 02/11/25 13:30 Iopamidol-370 (76%);100ml Bottle IV 02/11/25 13:28 75 ml ONCE ONE Administration Ketorolac Tromethamine 30 mg 02/11/25 12:28 02/11/25 12:37 Ketorolac 30mg/Ml Vial IV 02/11/25 12:29 30 mg ONCE ONE Administration Ondansetron HCl 4 mg 02/11/25 12:28 02/11/25 12:36 Ondansetron 4mg/2ml Vial IV 02/11/25 12:29 4 mg ONCE ONE Administration Sodium Chloride 8 ml 02/11/25 12:28 Sodium Chloride 0.9% 10ml Vial IV 03/13/25 12:27 NEEDED PRN dilute pepcid Sodium Chloride 10 ml 02/11/25 13:27 02/11/25 13:31 Sodium Chloride 0.9% 10ml Syr (Rad Only) IV 03/13/25 13:26 10 ml NEEDED PRN Administration Maintain IV Site ORDERS Category Date Time Status CT abdomen pelvis w con Stat Cat Scan 02/11/25 12:28 Completed CBC [Complete Blood Count Auto Diff] Stat Lab 02/11/25 12:37 Completed Comprehensive Metabolic Panel Stat Lab 02/11/25 12:37 Completed Diarrhea 23 Panel, PCR Stat Lab 02/11/25 13:00 Completed HIV Combo Stat Lab 02/11/25 12:37 Completed Hepatitis C Ab Qual. W/ RFX Stat Lab 02/11/25 12:37 Completed Lipase Stat Lab 02/11/25 12:37 Completed Magnesium Stat Lab 02/11/25 12:37 Completed Rapid PCR Covid and Flu A/B Stat Lab 02/11/25 13:09 Completed Trop I [Troponin I] Stat Lab 02/11/25 12:37 Completed UA [Urinalysis and Microscopic] Stat Lab 02/11/25 12:25 Completed Medical Decision Narrative: patient is a 54-year-old male presenting to the emergency department for evaluation of diarrhea since that has become worse each day. He has had nausea no vomiting until today when he arrived to the ER where he did start vomiting and abdominal pain. Patient is hemodynamically stable and pale appearing upon arrival, afebrile. Differential diagnosis includes viral illness, viral diarrhea, appendicitis, pancreatitis, among other. Workup will be conducted with hematologic labs, specific imaging. Initial inventions include crystalloid bolus, analgesics antiemetics. Initial workup reviewed by me hematologic labs are remarkable for nothing acute. Imaging informally interpreted by me and remarkable for acute gastro enteritis inflammatory versus infectious read by Dr. Lopez. Please see radiology report for formal imaging. Upon repeat evaluation patient's pain is improved. Patient has improved with 2 L of fluid, Toradol and Zofran. We discussed his supportive therapy at home and taking Zofran and Imodium. I do want him follow-up with his GI doctor who they say is in [place]. Patient is safe for discharge home. <Tg Lopez, DO - Last Filed: 02/11/25 14:06> Vital Signs: 02/11/25 12:15 02/11/25 12:48 02/11/25 12:56 Temperature 98.2 F 98.2 F Temperature Source Oral Oral Pulse Rate 80 Pulse Rate [Right] 80 Respiratory Rate 15 15 Blood Pressure 147/90 H Blood Pressure [Right Arm] 147/90 H Blood Pressure Mean [Right Arm] 109 Blood Pressure Source Automatic Cuff Blood Pressure Source [Right Arm] Automatic Cuff Blood Pressure Position Supine Blood Pressure Position [Right Arm] Supine 02 Sat by Pulse Oximetry 98 98 98 Oxygen Delivery Method Room Air Room Air Room Air 02/11/25 14:00 02/11/25 14:15 02/11/25 14:30 Temperature Temperature Source Pulse Rate 75 72 72 Pulse Rate [Right] Respiratory Rate 20 17 17 Blood Pressure 133/76 128/75 129/81 Blood Pressure [Right Arm] Blood Pressure Mean [Right Arm] Blood Pressure Source Blood Pressure Source [Right Arm] Blood Pressure Position Blood Pressure Position [Right Arm] 02 Sat by Pulse Oximetry 99 100 97 Oxygen Delivery Method 02/11/25 14:55 Temperature 98.4 F Temperature Source Oral Pulse Rate 89 Pulse Rate [Right] Respiratory Rate 14 Blood Pressure 122/72 Blood Pressure [Right Arm] Blood Pressure Mean [Right Arm] Blood Pressure Source Automatic Cuff Blood Pressure Source [Right Arm] Blood Pressure Position Sitting Blood Pressure Position [Right Arm] 02 Sat by Pulse Oximetry Oxygen Delivery Method Room Air Lab Data Lab Results 02/11/25 12:25: Urine Color Yellow, Urine Appearance Turbid, Urine pH 6.0, Ur Specific [place] >= 1.030, Urine Protein Trace, Urine Glucose (UA) Negative, Urine Ketones Negative, Urine Blood Negative, Urine Nitrate Negative, Urine Bilirubin Negative, Urine Urobilinogen 0.2, Ur Leukocyte Esterase Negative, Urine RBC None, Urine WBC Occasional, Ur Squamous Epith Cells Occasional, Amorphous Sediment 1+, Urine Bacteria 1+ 02/11/25 12:37: WBC 8.5, RBC 5.63, Hgb 16.0, Hct 48.0, MCV 85.3, MCH 28.4, MCHC 33.3, RDW 13.4, Plt Count 241, MPV 11.8 H, Neut % (Auto) 81.0 H, Lymph % (Auto) 8.2 L, [place] % (Auto) 8.1, Eos % (Auto) 1.8, Baso % (Auto) 0.4, Neut # (Auto) 6.9, Lymph # (Auto) 0.7, [place] # (Auto) 0.7, Eos # (Auto) 0.2, Baso # (Auto) 0.0, Sodium 135 L, Potassium 3.7, Chloride 96 L, Carbon Dioxide 27, Anion Gap 15.7 H, BUN 19, Creatinine 1.10, Estimated Creat Clear 112, Estimated GFR 70, Est GFR ( Amer) 85, Glucose 133 H, Calcium 9.2, Magnesium 2.1, Total Bilirubin 1.3, AST 35, ALT 47, Alkaline Phosphatase 63, Troponin I < 0.01, Total Protein 8.9 H, Albumin 4.9, Globulin 4.0 H, Albumin/Globulin Ratio 1.2, Lipase 145, HCV Ab KVNG w/Rflx PCR Qn Negative, HIV Ag/Ab Combo Qual Negative 02/11/25 13:00: Stl C. cayetanensis PCR Not detected, Stool Rotavirus (PCR) Not detected, Stl Adenov F 40/41 PCR Not detected, Stool Astrovirus (PCR) Not detected, Stool Campylobacter PCR Not detected, Stl C.difficile Tox PCR Not detected, Stool Cryptosporidium PCR Detected A, Stl E.coli Shiga Tox PCR Not detected, Stool E coli O157 PCR Not detected, Stl Enterotoxigenic E PCR Not detected, Stool EPEC (PCR) Not detected, Stool EAEC (PCR) Not detected, Stl E. histolytica PCR Not detected, Stool Giardia Lamblia PCR Not detected, Stool Salmonella PCR Not detected, Stool Sapovirus (PCR) Not detected, Stl P. shigelloides PCR Not detected, Stl Shigella/EIEC PCR Not detected, St Y.enterocolitica PCR Not detected, Stool Vibrio (PCR) Not detected, Stl Vibrio cholerae PCR Not detected, Stl Norovirus GI/GII PCR Not detected 02/11/25 13:09: SARS-CoV-2 (PCR) Not detected, Influenza A Untype (PCR) Not detected, Influenza Type B (PCR) Not detected Orders (Tests/Meds): ED MEDICATIONS Discontinued Medications Generic Name Dose Route Start Last Admin Trade Name Freq PRN Reason Stop Dose Admin Famotidine 20 mg 02/11/25 12:28 02/11/25 12:37 Famotidine 20mg/2ml Vial IV 02/11/25 12:29 20 mg ONCE ONE Administration Sodium Chloride 1,000 mls @ 999 mls/hr 02/11/25 12:28 02/11/25 12:37 Sod Chlor 0.9% 1000ml Bag IV 02/11/25 13:28 999 mls/hr .Q1H1M ONE Administration Sodium Chloride 1,000 mls @ 999 mls/hr 02/11/25 13:45 02/11/25 13:44 Sod Chlor 0.9% 1000ml Bag IV 02/11/25 14:45 999 mls/hr .Q1H1M FABIENNE Administration Sodium Chloride 1,000 mls @ 999 mls/hr 02/11/25 13:48 02/11/25 14:34 Sod Chlor 0.9% 1000ml Bag IV 02/11/25 14:48 Not Given .Q1H1M ONE Iopamidol 75 ml 02/11/25 13:27 02/11/25 13:30 Iopamidol-370 (76%);100ml Bottle IV 02/11/25 13:28 75 ml ONCE ONE Administration Ketorolac Tromethamine 30 mg 02/11/25 12:28 02/11/25 12:37 Ketorolac 30mg/Ml Vial IV 02/11/25 12:29 30 mg ONCE ONE Administration Ondansetron HCl 4 mg 02/11/25 12:28 02/11/25 12:36 Ondansetron 4mg/2ml Vial IV 02/11/25 12:29 4 mg ONCE ONE Administration Sodium Chloride 8 ml 02/11/25 12:28 Sodium Chloride 0.9% 10ml Vial IV 03/13/25 12:27 NEEDED PRN dilute pepcid Sodium Chloride 10 ml 02/11/25 13:27 02/11/25 13:31 Sodium Chloride 0.9% 10ml Syr (Rad Only) IV 03/13/25 13:26 10 ml NEEDED PRN Administration Maintain IV Site ORDERS Category Date Time Status CT abdomen pelvis w con Stat Cat Scan 02/11/25 12:28 Completed CBC [Complete Blood Count Auto Diff] Stat Lab 02/11/25 12:37 Completed Comprehensive Metabolic Panel Stat Lab 02/11/25 12:37 Completed Diarrhea 23 Panel, PCR Stat Lab 02/11/25 13:00 Completed HIV Combo Stat Lab 02/11/25 12:37 Completed Hepatitis C Ab Qual. W/ RFX Stat Lab 02/11/25 12:37 Completed Lipase Stat Lab 02/11/25 12:37 Completed Magnesium Stat Lab 02/11/25 12:37 Completed Rapid PCR Covid and Flu A/B Stat Lab 02/11/25 13:09 Completed Trop I [Troponin I] Stat Lab 02/11/25 12:37 Completed UA [Urinalysis and Microscopic] Stat Lab 02/11/25 12:25 Completed ECG Data Tracing #1: I reviewed this ECG and interpreted as documented below: Sinus rhythm with a ventricular of [address] changes concerning for STEMI. Normal intervals ECG initial impression date: 02/11/25 ECG initial impression time: 13:05 Critical Care <Tierra Hartley (ED), [employer] WORK[employer] - Last Filed: 02/11/25 17:44> Critical Care Time Critical Care Time: No
[2025-02-11 12:32] LABS: Microscopic, Urine URINE MICROSCOPIC (MICROSCOPIC)
[2025-02-11] MEDS: ONDANSETRON 4MG/2ML VIAL 4 MG IV (12:36)
[2025-02-11] MEDS: KETOROLAC 30MG/ML VIAL 30 MG IV (12:37)
[2025-02-11] MEDS: FAMOTIDINE 20MG/2ML VIAL 20 MG IV (12:37)
[2025-02-11] MEDS: 0.9 % SODIUM CHLORIDE 1000ML 1,000 ML 999 ML IV ×2 (12:37→13:44)
--- NOTE | 2025-02-11 12:37 | ECG_ITS ---
APPROVED REPORT Exam: Resting ECG HR:81 bpm ECG Measurements Heart Rate 81 AXES WI 146 P 60 QRSd 100 QRS 26 QT 358 T 45 QTc 395 Conclusion SINUS RHYTHM NORMAL ECG No STEMI Electronically signed by : NUNU WELLS, 02/11/2025 15:42:46
[2025-02-11 13:00] LABS: Color,Urine YELLOW (Yellow); Glucose,Urine (UA) Negative (Negative); Ketones,Urine Negative (Negative); Leukocyte Esterase,Urine Negative (Negative); PH,Urine 6.0 (5.0-8.5); Protein,Urine TRACE (Negative); Specific Gravity, Urine >= 1.030 (1.005-1.030); Urobilinogen,Urine 0.2 EU/dl (0.2)
[2025-02-11 13:02] LABS: Adenovirus F 40/41, stool Not Detected (NotDetected); Clostridium Difficile A/B, PCR Not Detected (NotDetected); Cyclospora Cayetanesis Not Detected (NotDetected); Plesimonas Shigalloides, PCR Not Detected (NotDetected); Salmonella, PCR Not Detected (NotDetected); Shiga-like toxin E coli Not Detected (NotDetected); Shigella Enterovasive E coli Not Detected (NotDetected); Vibrio, PCR Not Detected (NotDetected); Yersinia Entercolitica, PCR Not Detected (NotDetected)
[2025-02-11 13:11] LABS: Alanine Aminotransferase 47 U/L (12-78); Albumin Level 4.9 g/dl (3.5-5.0); Albumin/Globulin Ratio 1.2 (1.1-1.8); Alkaline Phosphatase 63 U/L (38-126); Anion Gap 15.7 mEq/L (5-15); Aspartate Amino Transferase 35 U/L (17-59); Bilirubin,Total 1.3 mg/dl (0.2-1.3); Blood Urea Nitrogen 19 mg/dl (9-20); Calcium 9.2 mg/dl (8.4-10.2); Carbon Dioxide 27 mmol/L (22.0-30.0); Chloride 96 mmol/L (98-107); Creatinine Clearance Estimated 112 mL/min (50-200); Creatinine,Serum 1.10 mg/dl (0.66-1.25); Estimated Glomerular Filt Rate 70 ml/min (>60); GFR (African American) 85 ML/MIN (>60); Globulin 4.0 g/dL (1.3-3.2); Glucose 133 mg/dl (74-100); Lipase 145 U/L (23-300); Magnesium 2.1 mg/dl (1.6-2.3); Potassium 3.7 mmoL/L (3.5-5.1); Sodium 135 mmol/L (136-145); Total Protein,Serum 8.9 g/dl (6.3-8.2)
[2025-02-11 13:23] LABS: Troponin I < 0.01 ng/ml (0.00-0.034)
[2025-02-11 13:26] LABS: Coronavirus 19, PCR Not Detected (NotDetected); Influenza A, PCR Not Detected (NotDetected); Influenza B, PCR Not Detected (NotDetected)
[2025-02-11 13:27] LABS: Amorphous Sediment,Urine 1+ /lpf; Bacteria,Urine 1+ /lpf; Bilirubin,Urine Negative (Negative); Squamous Epithelial Cell,Urine Occasional #/hpf (0-5); WBC,Urine Occasional #/hpf (0-3)
[2025-02-11 13:30] LABS: Hematocrit 48.0 % (42.0-52.0); Hemoglobin 16.0 g/dL (14.1-18.0); Immature Granulocytes % 0.5 %; Mean Corpuscular HGB Conc 33.3 g/dL (31.8-35.4); Mean Corpuscular Hemoglobin 28.4 pg (27.0-31.2); Mean Corpuscular Volume 85.3 fl (80-94); Nucleated Red Blood Cells % 0 %; Platelet Count 241 K/mm3 (142-424); Red Blood Count 5.63 M/mm3 (4.60-6.20); Red Cell Distribution Width-SD 41.9 fL; White Blood Count 8.5 K/mm3 (4.8-10.8)
[2025-02-11] MEDS: IOPAMIDOL-370 (76%);100ML BOTTLE 75 ML IV (13:30)
[2025-02-11] MEDS: SODIUM CHLORIDE 0.9% 10ML SYR (RAD ONLY) 10 ML IV (13:31)
--- NOTE | 2025-02-11 13:46 | PC.NURSE ---
rounded on patient, no needs voiced at this time.
[2025-02-11 15:29] LABS: Hepatitis C Ab Qual. W/ RFX NEGATIVE (Negative)
--- NOTE | 2025-02-11 15:33 | PC.NURSE ---
amalia in lab called to notify TRN of critical lab result of cryptospordium in GI panel. JUSTICE and SEVERIANO notified. will call pt and notifiy them of ABX being called in.
--- NOTE | 2025-02-11 18:19 | PC.NURSE ---
called prescription in at [facility] at this time
== END 2025-02-11 15:00 | disposition home or self-care (01) ==
PROVIDERS: Nurse Practitioner; Emergency Provider Emergency Medicine; PCP Family Medicine
DX: R19.7 Diarrhea, unspecified (principal); E86.0 Dehydration
CPT/HCPCS: 74177; 80053; 81001; 83690; 83735; 84484; 85025; 86803; 87389; 87507; 87636; 93005; 96361; 96374; 96375; 99285; J1885; J2405; J7030; Q9967